=== PATIENT | male | born 2000 | race African-American/Black ===

== ENCOUNTER 2022-11-06 01:07 | Emergency (ER) | payer OTHER, SELFPAY ==
[2022-11-06 01:09] VITALS: BP 173/99; PULSE 89; RESP 20; TEMP 36.9; O2SAT 99
--- NOTE | 2022-11-06 02:01 | ED.GENADULT ---
HPI - General Adult General Chief complaint: Abdominal Pain Stated complaint: ABD PAIN Time Seen by Provider: 11/06/22 01:08 History of Present Illness HPI narrative: this is a 22-year-old male presenting ED with a chief complaint of abdominal pain. Pain started when he woke up this morning, is a stabbing pain all over her stomach that is 10/10 in intensity and comes and goes. He has experienced this many times in the past. There are no exacerbating or alleviating factors. He has gone to multiple hospitals where he has been told that this is cyclic vomiting but he does not believe them. Patient has had multiple episodes of nausea and vomiting, no diarrhea fevers chest pain or difficulty breathing. Patient smokes 3-4 blunts per day. Related Data Allergies Allergy/AdvReac Type Severity Reaction Status Date / Time No Known Allergies Allergy Verified 11/06/22 01:22 [facility] Social History Social History (Updated 11/06/22 @ 02:03 by Spike Clarke MD) Social History: Daily marijuana Exam Narrative: APPEARANCE: patient is rolling back and forth moaning, he will not sit still Head: atraumatic. EYES: EOMI, NOSE: Atraumatic NECK: Trachea midline RESPIRATORY: No increased rate of breathing CARDIOVASCULAR: RRR, ABDOMINAL: abdomen is soft, nontender no guarding or rebound MUSCULOSKELETAl: No obvious deformities NEURO: Alert. Moving 4/4 extremities SKIN:: Warm, dry. Normal color PSYCHIATRIC: Normal affect Course Vital Signs Vital signs: Vital Signs Temperature 98.5 F 11/06/22 01:09 Pulse Rate 89 11/06/22 01:09 Respiratory Rate 20 11/06/22 01:09 Blood Pressure 173/99 H 11/06/22 01:09 Pulse Oximetry 99 11/06/22 01:09 Oxygen Delivery Room Air 11/06/22 01:09 Temperature 98.5 F 11/06/22 01:09 Pulse Rate 80 11/06/22 03:00 Respiratory Rate 19 11/06/22 03:00 Blood Pressure 144/91 H 11/06/22 03:00 Pulse Oximetry 99 11/06/22 03:00 Oxygen Delivery Room Air 11/06/22 01:09 Medical Decision Making MDM Narrative Medical decision making narrative: -Presentation: 22-year-old daily marijuana user presenting with diffuse abdominal pain nausea and vomiting. -DDX includes but is not limited to: Cyclic vomiting, gastritis -Co-morbidities complicating care: daily marijuana use -Social determinants of health: lives with his girlfriend and son -External Chart Review: none -Hx from independent Sources: none -Discussion of Management/Consultants: none -Independent interpretation of studies: lab work is within normal limits. Dx tests considered but not ordered: CT abdomen pelvis -abdomen is soft nontender with no guarding or rebound. Patient's history and physical are consistent with cyclic vomiting. -Procedures: -Interventions: 2 L normal saline, 5 mg Haldol, 20 mg Pepcid, 4 mg Zofran, 10 mg Compazine, 25 mg Benadryl -Shared decision making / Disposition: patient's symptoms improved after Haldol administration. He was informed that he needs to stop smoking. Patient is skeptical. Patient will be discharged. -RX Vital Signs Vital Signs: Vital Signs Temperature 98.5 F 11/06/22 01:09 Pulse Rate 89 11/06/22 01:09 Respiratory Rate 20 11/06/22 01:09 Blood Pressure 173/99 H 11/06/22 01:09 Pulse Oximetry 99 11/06/22 01:09 Oxygen Delivery Room Air 11/06/22 01:09 Temperature 98.5 F 11/06/22 01:09 Pulse Rate 80 11/06/22 03:00 Respiratory Rate 19 11/06/22 03:00 Blood Pressure 144/91 H 11/06/22 03:00 Pulse Oximetry 99 11/06/22 03:00 Oxygen Delivery Room Air 11/06/22 01:09 Lab Data 11/06/22 02:41 11/06/22 02:41 Labs: Lab Results 11/06/22 11/06/22 Range/Units 02:41 02:41 WBC 11.8 H (4.5-10.0) K/mm3 RBC 4.32 L (4.6-6.20) M/mm3 Hgb 10.4 L (14.0-18.0) g/dL Hct 33.5 L (42.0-52.0) % MCV 77.5 L (80-100) fl MCH 24.1 L (26-34) pg MCHC 31.0 L (32-36) g/dl RDW 1
[2022-11-06 02:45] LABS: Basophils Percent Auto 0.2 % (0.2-1.2); Eosinophils Absolute Auto 0.1 K/mm3 (0-0.3); Eosinophils Percent Auto 0.5 % (0-4.4); Hematocrit 33.5 % (42.0-52.0); Hemoglobin 10.4 g/dL (14.0-18.0); Immature Granulocyte Absolute 0.04 K/mm3 (0.00-0.031); Immature Granulocyte Percent A 0.3 % (0-0.5); Lymphocytes Absolute Auto 1.56 K/mm3 (0.9-3.2); Lymphocytes Percent Auto 13.3 % (18.3-44.2); Mean Corpuscular Hemoglobin 24.1 pg (26-34); Mean Corpuscular Volume 77.5 fl (80-100); Mean Platelet Volume 9.7 fl (7.4-10.4); Monocytes Absolute Auto 0.6 K/mm3 (0.1-0.6); Neutrophils Absolute Auto 9.5 K/mm3 (1.3-6.7); Neutrophils Percent Auto 80.7 % (45.5-73.1); Platelet Count Result 334 k/mm3 (150-375); Red Blood Count 4.32 M/mm3 (4.6-6.20); Red Cell Distribution Width 13.1 % (11.5-14.5); White Blood Count 11.8 K/mm3 (4.5-10.0)
[2022-11-06 03:00] VITALS: BP 144/91; PULSE 80; RESP 19; O2SAT 99
[2022-11-06 03:00] LABS: Alanine Aminotransferase 34 U/L (6-50); Albumin Level 4.5 g/dL (3.5-5.1); Alkaline Phosphatase 81 U/L (38-126); Anion Gap 11 mmol/L (8-16); Aspartate Amino Transferase 29 U/L (17-59); Bilirubin,Total 0.9 mg/dL (0.2-1.3); Blood Urea Nitrogen 12 mg/dL (9-20); Carbon Dioxide 22 mmol/L (22-30); Chloride 103 mmol/L (98-107); Estimated CRCL calculation 119 ml/min; Estimated Glomerular Filt Rate > 60; Glucose 101 mg/dL (65-110); Lipase 62 U/L (23-300); Potassium 3.3 mmol/L (3.4-5.0); Sodium 136 mmol/L (137-145)
[2022-11-06] MEDS: SODIUM CHLORIDE 0.9% IV 2,000 ML 999 ML IV CONT (03:46)
[2022-11-06] MEDS: FAMOTIDINE 20 MG/2 ML VIAL IV PUSH (03:49)
[2022-11-06] MEDS: HALOPERIDOL LACTATE 5 MG/ML VIAL IV PUSH (03:49)
[2022-11-06] MEDS: diphenhydrAMINE HCl INJ 50 MG/ML VIAL 25 MG IV PUSH (03:50)
[2022-11-06] MEDS: ONDANSETRON INJ 4 MG/2 ML VIAL IV PUSH (03:50)
[2022-11-06] MEDS: PROCHLORPERAZINE EDISYLATE 10 MG/2 ML VIAL IV PUSH (03:51)
== END 2022-11-06 04:40 | disposition home or self-care (01) ==
PROVIDERS: Emergency Provider Emergency Medicine; PCP Internal Medicine
DX: R11.2 Nausea with vomiting, unspecified (principal); F12.90 Cannabis use, unspecified, uncomplicated
CPT/HCPCS: 36415; 80053; 83690; 85025; 96361; 96374; 96375; 99284; J0780; J1200; J1630; J2405; J7030

== ENCOUNTER 2022-11-28 18:33 | Emergency (ER) | payer OTHER, SELFPAY ==
[2022-11-28] VITALS (19 sets, daily range): BP systolic 109–151; BP diastolic 61–87; PULSE 114; RESP 20; TEMP 36.3; O2SAT 92–100
[2022-11-28 19:04] LABS: Basophils Percent Auto 0.1 % (0.2-1.2); Eosinophils Percent Auto 0.2 % (0-4.4); Hematocrit 39.3 % (42.0-52.0); Hemoglobin 12.4 g/dL (14.0-18.0); Immature Granulocyte Absolute 0.04 K/mm3 (0.00-0.031); Immature Granulocyte Percent A 0.4 % (0-0.5); Lymphocytes Absolute Auto 1.26 K/mm3 (0.9-3.2); Lymphocytes Percent Auto 12.5 % (18.3-44.2); Mean Corpuscular HGB Conc 31.6 g/dl (32-36); Mean Corpuscular Hemoglobin 24.3 pg (26-34); Mean Corpuscular Volume 77.1 fl (80-100); Mean Platelet Volume 9.2 fl (7.4-10.4); Monocytes Absolute Auto 0.3 K/mm3 (0.1-0.6); Monocytes Percent Auto 2.9 % (2.6-8.5); Neutrophils Absolute Auto 8.5 K/mm3 (1.3-6.7); Neutrophils Percent Auto 83.9 % (45.5-73.1); Platelet Count Result 302 k/mm3 (150-375); White Blood Count 10.1 K/mm3 (4.5-10.0)
[2022-11-28 19:21] LABS: Alanine Aminotransferase 40 U/L (6-50); Albumin Level 5.1 g/dL (3.5-5.1); Alkaline Phosphatase 96 U/L (38-126); Anion Gap 13 mmol/L (8-16); Aspartate Amino Transferase 30 U/L (17-59); Blood Urea Nitrogen 7 mg/dL (9-20); Calcium 9.7 mg/dL (8.4-10.2); Carbon Dioxide 20 mmol/L (22-30); Chloride 104 mmol/L (98-107); Estimated CRCL calculation 119 ml/min; Estimated Glomerular Filt Rate > 60; Glucose 133 mg/dL (65-110); Lipase 52 U/L (23-300); Potassium 3.6 mmol/L (3.4-5.0); Sodium 137 mmol/L (137-145)
[2022-11-28] MEDS: HALOPERIDOL LACTATE 5 MG/ML VIAL 2.5 MG IV PUSH (22:51)
[2022-11-28 23:47] LABS: Appearance Urine Clear (Clear); Bacteria Urine None Seen /hpf; Bilirubin Urine Negative (Negative); Blood Urine Negative (Negative); Color Urine Yellow (Yellow); Glucose Urine UA Negative (Negative); Ketones Urine 3+ mg/dL (Negative); Leukocyte Esterase Ur Trace LEU/UL (Negative); Nitrate Urine Negative (Negative); Non Pathogenic Casts 0-2; Protein Urine 1+ mg/dL (Negative); RBC Urine 0-2 /hpf (0-2); Specific Grav Ur 1.022 (1.001-1.035); Squamous Epithelial Cell Urine None seen /hpf (Few); WBC Urine 0-5 /hpf; pH Urine >=9.0 (5.0-9.0)
--- NOTE | 2022-11-28 23:48 | ED.ABDPAIN ---
HPI - Abdominal Pain General Chief Complaint: Abdominal Pain Stated Complaint: N/V abd pain Time Seen by Provider: 11/28/22 21:21 History of Present Illness HPI narrative: This is a 22-year-old male with past history of GERD, who presents the emergency department complaining of diffuse abdominal pain and nausea and vomiting. He states this began at approximately noon today. He smoked marijuana earlier this morning. Related Data Allergies Allergy/AdvReac Type Severity Reaction Status Date / Time No Known Allergies Allergy Verified 11/28/22 18:46 Review of Systems Review of Systems: CONSTITUTIONAL: Denies fever, chills, or sweats. CARDIOVASCULAR: Denies chest pain, palpitations, or edema. RESPIRATORY: Denies cough or dyspnea. GASTROINTESTINAL: Diffuse cramping abdominal pain, nausea and vomiting denies diarrhea. GENITOURINARY: Denies dysuria or hematuria. SKIN: Denies rash or itching. MUSCULOSKELETAL: Denies back pain, joint pain, or myalgia. NEUROLOGIC: Denies headache, numbness, dizziness, or weakness. PSYCHIATRIC: Denies anxiety or depression. [facility] Past Medical History Medical History (Updated 11/29/22 @ 04:43 by Angelito Fong MD) Gastroesophageal reflux disease Social History Social History (Updated 11/29/22 @ 04:43 by Angelito Fong MD) Social History: Daily marijuana Smoking status: Current some day smoker Alcohol intake: current Substance use: current Substance use type: marijuana Exam Narrative: GENERAL: Well-developed, well-nourished, appears uncomfortable HEAD: Normocephalic, atraumatic. EYES: PERRLA and EOMI. ENT: Nares clear, no rhinorrhea or epistaxis. Mucous membranes moist. Oropharynx without tonsillar hypertrophy exudate or other lesions. CHEST: Clear to auscultation. No respiratory distress. No wheezes rales or rhonchi HEART: Regular rate and rhythm. No murmur heard. Normal peripheral pulses. ABDOMEN: Soft, nontender, nondistended, normal active bowel sounds. EXTREMITIES: Normal range of motion. No edema. SKIN: Warm, dry, no rash. NEURO: No focal deficits. Alert and oriented x3. PSYCH: Normal mood and affect. Course Course Emergency Course: 23:15 - On reevaluation, the patient states his pain and nausea is improved. He requests to be discharged home. Chemistries unremarkable. CBC demonstrates mildly elevated white blood cell count at 10 and mild microcytic anemia with hemoglobin of 12.4 (baseline 10). UA appears consistent with urinary tract infection but is not concerning for hematuria. The patient politely refuses medications and denies dysuria. Discussed return and emergency precautions including signs/symptoms of intractable vomiting and ACS. The patient voiced understanding and is comfortable with the plan. All questions answered to his satisfaction. Vital Signs Vital signs: Vital Signs Temperature 97.4 F L 11/28/22 18:43 Pulse Rate 114 H 11/28/22 18:43 Respiratory Rate 20 11/28/22 18:43 Blood Pressure 129/86 11/28/22 18:43 Pulse Oximetry 98 11/28/22 18:43 Oxygen Delivery Room Air 11/28/22 18:43 Temperature 97.4 F L 11/28/22 18:43 Pulse Rate 114 H 11/28/22 18:43 Respiratory Rate 20 11/28/22 18:43 Blood Pressure 109/61 11/28/22 23:46 Pulse Oximetry 100 11/28/22 23:32 Oxygen Delivery Room Air 11/28/22 18:43 MDM - Abdominal Pain MDM Narrative Medical decision making narrative: Plan: Labs, antiemetics, pain control, reassess Differential Diagnosis Differential diagnosis: Likely abdominal pain, constipation, gastroenteritis and other (Cannabis hyperemesis, nephrolithiasis, metabolic abnormality, other) Lab Data 11/28/22 18:52 11/28/22 18:52 Labs: Lab Results 11/28/22 11/28/22 Range/Units 18:52 22:53 WBC 10.1 H (4.5-10.0) K/mm3 RBC 5.10 (4.6-6.20) M/mm3 Hgb 12.4 L (14.0-18.0) g/dL Hct 39.3 L (42.0-52.0) % MCV 77.1 L (80-100) fl MCH 24.3
[2022-11-28 23:53] LABS: Add Urine Microscopic? YES
== END 2022-11-29 | disposition home or self-care (01) ==
PROVIDERS: Emergency Medicine; Emergency Provider Preventive Medicine Aerospace Medicine; PCP Internal Medicine
DX: R11.2 Nausea with vomiting, unspecified (principal); F12.10 Cannabis abuse, uncomplicated; K21.9 Gastro-esophageal reflux disease without esophagitis
CPT/HCPCS: 36415; 80053; 81001; 83690; 85025; 96374; 99284; J1630

== ENCOUNTER 2022-12-01 18:12 | Emergency (ER) | payer OTHER, SELFPAY ==
[2022-12-01 18:29] VITALS: BP 139/73; PULSE 83; RESP 18; O2SAT 100
[2022-12-01 19:46] LABS: Basophils Percent Auto 0.3 % (0.2-1.2); Hematocrit 38.4 % (42.0-52.0); Immature Granulocyte Absolute 0.02 K/mm3 (0.00-0.031); Immature Granulocyte Percent A 0.2 % (0-0.5); Lymphocytes Absolute Auto 1.23 K/mm3 (0.9-3.2); Lymphocytes Percent Auto 13.5 % (18.3-44.2); Mean Corpuscular HGB Conc 31.3 g/dl (32-36); Mean Corpuscular Volume 76.8 fl (80-100); Mean Platelet Volume 8.9 fl (7.4-10.4); Monocytes Absolute Auto 0.7 K/mm3 (0.1-0.6); Monocytes Percent Auto 7.1 % (2.6-8.5); Neutrophils Absolute Auto 7.2 K/mm3 (1.3-6.7); Neutrophils Percent Auto 78.9 % (45.5-73.1); Platelet Count Result 301 k/mm3 (150-375); Red Cell Distribution Width 12.7 % (11.5-14.5); White Blood Count 9.1 K/mm3 (4.5-10.0)
--- NOTE | 2022-12-01 19:53 | ED.ABDPAIN ---
HPI - Abdominal Pain General Chief Complaint: Abdominal Pain Stated Complaint: abd pain/nausea Time Seen by Provider: 12/01/22 19:35 History of Present Illness HPI narrative: 22 year old male with a history of cannabis hyperemesis here due to n/v and epigastric abdominal pain. States that he has been unable to tolerate any p.o. over the past 2 days. Pain is described as a soreness in his epigastric region. History of similar and was treated in the ED numerous times and was told it was due to his marijuana use. Patient does admit to smoking marijuana over the past several days. He was seen at [place] emergency department earlier today and was given unknown medicines. States that he went home and smoked more marijuana and then began to vomit again. Related Data Allergies Allergy/AdvReac Type Severity Reaction Status Date / Time No Known Allergies Allergy Verified 12/01/22 18:32 Review of Systems Review of Systems: Gen.: Denies fevers or chills Eyes: Denies eye pain or visual change ENT: Denies congestion Respiratory: Denies shortness of breath or cough CV: Denies chest pain or palpitations GI: Reports abdominal pain, nausea and vomiting denies burning, urgency, frequency or hematuria Musculoskeletal: Denies back pain or muscle pain Neuro: Denies numbness, tingling, weakness or focal weakness Skin: Denies rash Except as documented, all other systems reviewed and negative [facility] Past Medical History Medical History Gastroesophageal reflux disease Social History Social History (Updated 11/29/22 @ 04:43 by Angelito Fong MD) Social History: Daily marijuana Smoking status: Current some day smoker Alcohol intake: current Substance use: current Substance use type: marijuana Exam Narrative: APPEARANCE: Uncomfortable appearing, actively vomiting, 500 cc of nonbloody vomit in emesis bag Head: Normocephalic and atraumatic. EYES: PERRLA/EOMI, conjunctivae clear NOSE: No nasal drainage EARS: External ear normal in appearance THROAT: Oropharynx is clear. Mucous membranes are moist. NECK: Supple. No adenopathy, no masses. RESPIRATORY: Airway patent, respirations nonlabored. Clear to auscultation bilaterally, no rales, rhonchi, wheezing. CARDIOVASCULAR: Regular rate and rhythm without murmurs, rubs, or gallops. ABDOMINAL: Normoactive bowel sounds. Soft, nontender, nondistended. No rebound tenderness or guarding. MUSCULOSKELETAL: Extremities are warm and well-perfused. Moves all extremities well. No edema. NEURO: Normal speech. No focal neurologic deficits. SKIN: Skin is warm and dry. No rashes. PSYCHIATRIC: Normal affect/mood. Course Vital Signs Vital signs: Vital Signs Pulse Rate 83 12/01/22 18:29 Respiratory Rate 18 12/01/22 18:29 Blood Pressure 139/73 12/01/22 18:29 Pulse Oximetry 100 12/01/22 18:29 Oxygen Delivery Room Air 12/01/22 18:29 Temperature 98 F 12/01/22 21:10 Pulse Rate 80 12/01/22 21:10 Respiratory Rate 18 12/01/22 21:10 Blood Pressure 111/69 12/01/22 21:10 Pulse Oximetry 99 12/01/22 21:10 Oxygen Delivery Room Air 12/01/22 18:29 MDM - Abdominal Pain MDM Narrative Medical decision making narrative: 22-year-old male here for evaluation of nausea and vomiting of the past several days, positive cannabis use. He is uncomfortable appearing but nontoxic, has no tenderness to palpation of the abdomen. Vital signs are normal. Basic labs unremarkable, UA with ketones likely due to dehydration. Patient was given Haldol, Benadryl and fluids with improvement of his symptoms. He is able to tolerate p.o. No indication for intra-abdominal imaging at this time. Understands he needs to stop smoking marijuana. He was given GI follow-up. Return precautions were given and he voiced understanding. Lab Data 12/01/22 19:39 12/01/22 19:39 Labs: Lab Results
[2022-12-01 20:00] LABS: Alanine Aminotransferase 26 U/L (6-50); Albumin Level 4.8 g/dL (3.5-5.1); Alkaline Phosphatase 79 U/L (38-126); Anion Gap 9 mmol/L (8-16); Aspartate Amino Transferase 43 U/L (17-59); Bilirubin,Total 0.9 mg/dL (0.2-1.3); Blood Urea Nitrogen 10 mg/dL (9-20); Calcium 9.5 mg/dL (8.4-10.2); Carbon Dioxide 28 mmol/L (22-30); Chloride 100 mmol/L (98-107); Estimated CRCL calculation 119 ml/min; Estimated Glomerular Filt Rate > 60; Glucose 98 mg/dL (65-110); Lipase 104 U/L (23-300); Potassium 3.6 mmol/L (3.4-5.0); Sodium 137 mmol/L (137-145)
[2022-12-01] MEDS: LACTATED RINGERS 1,000 ML 999 ML IV CONT (20:03)
[2022-12-01] MEDS: diphenhydrAMINE HCl INJ 50 MG/ML VIAL 25 MG IV PUSH (20:04)
[2022-12-01] MEDS: HALOPERIDOL LACTATE 5 MG/ML VIAL IV PUSH (20:04)
[2022-12-01 21:10] VITALS: BP 111/69; PULSE 80; RESP 18; TEMP 36.6; O2SAT 99
[2022-12-01 21:15] LABS: Appearance Urine Clear (Clear); Bacteria Urine None Seen /hpf; Bilirubin Urine Negative (Negative); Blood Urine Negative (Negative); Color Urine Dark Yellow (Yellow); Glucose Urine UA Negative (Negative); Ketones Urine 3+ mg/dL (Negative); Leukocyte Esterase Ur Negative LEU/UL (Negative); Nitrate Urine Negative (Negative); Non Pathogenic Casts 0-2; Protein Urine Trace mg/dL (Negative); RBC Urine 0-2 /hpf (0-2); Squamous Epithelial Cell Urine None seen /hpf (Few); WBC Urine 0-5 /hpf
[2022-12-01 21:23] LABS: Specific Grav Ur 1.036 (1.001-1.035)
[2022-12-01 21:24] LABS: Add Urine Microscopic? YES
== END 2022-12-01 21:19 | disposition home or self-care (01) ==
PROVIDERS: Emergency Medicine; Emergency Provider Physician Assistant; PCP Internal Medicine
DX: R11.2 Nausea with vomiting, unspecified (principal); F12.90 Cannabis use, unspecified, uncomplicated; K21.9 Gastro-esophageal reflux disease without esophagitis
CPT/HCPCS: 36415; 80053; 81001; 83690; 85025; 96361; 96374; 96375; 99284; J1200; J1630; J7120

== ENCOUNTER 2022-12-19 23:18 | Emergency (ER) | payer OTHER, SELFPAY ==
[2022-12-19 23:21] VITALS: PULSE 95; RESP 18; TEMP 36.6; O2SAT 99
[2022-12-19 23:24] VITALS: BP 110/59
--- NOTE | 2022-12-20 00:50 | ED.DENTAL ---
HPI - Dental/Oral General Chief complaint: Dental/Oral Stated complaint: left sided swelling and facial pain since yesteray Time Seen by Provider: 12/20/22 00:35 History of Present Illness HPI Narrative: 22-year-old male reports for evaluation of left lower mandibular pain and swelling that started yesterday. He reports tenderness over the left side of his face. Denies fever, difficulty swallowing, sore throat, difficulty breathing, rash, ear pain. Reports he does not have a dentist. Related Data Allergies Allergy/AdvReac Type Severity Reaction Status Date / Time No Known Allergies Allergy Verified 12/20/22 00:36 Review of Systems Review of Systems: CONSTITUTIONAL: Denies fever, chills EYES: Denies visual changes, redness, or discharge. ENT: Denies rhinorrhea, congestion, sore throat, or otalgia. CARDIOVASCULAR: Denies chest pain, palpitations, or edema. RESPIRATORY: Denies cough or dyspnea. GASTROINTESTINAL: Denies abdominal pain, nausea, vomiting, or diarrhea. GENITOURINARY: Denies dysuria or hematuria. SKIN: Denies rash or itching. MUSCULOSKELETAL: See HPI NEUROLOGIC: Denies headache, numbness, dizziness, or weakness. PSYCHIATRIC: Denies anxiety or depression. [facility] Past Medical History Medical History Gastroesophageal reflux disease Social History Social History Social History: Daily marijuana Smoking status: Current some day smoker Alcohol intake: current Substance use: current Substance use type: marijuana Exam Narrative: GENERAL: Well-appearing, in no acute distress. HEAD: Normocephalic EYES: PERRLA ENT: Mild facial edema and tenderness overlying the left cheek and mandible. No edema in the submandibular region or neck. Tenderness over the left TMJ. No trismus. Tenderness and induration to the buccal mucosa adjacent to teeth #19 and #20 with wisdom tooth beginning to penetrate gum line. No areas of fluctuation, no evidence of periapical abscess. No caries. No rash to face. Floor of mouth if soft without crepitus. Tolerating secretions. Nares clear. Mucous membranes moist. Oropharynx without tonsillar hypertrophy exudate or other lesions. Left TM is chavez and nonbulging. No mastoid tenderness. NECK: Supple. CHEST: No respiratory distress. Clear to auscultation, no adventitious breath sounds. HEART: Regular rate and rhythm. No murmur heard. Normal peripheral pulses. EXTREMITIES: Normal range of motion. No edema. SKIN: Warm, dry, no rash. NEURO: No focal deficits. Alert and oriented x3. PSYCH: Normal mood and affect. Course Vital Signs Vital signs: Vital Signs Temperature 97.9 F 12/19/22 23:21 Pulse Rate 95 12/19/22 23:21 Respiratory Rate 18 12/19/22 23:21 Pulse Oximetry 99 12/19/22 23:21 Oxygen Delivery Room Air 12/19/22 23:21 Temperature 97.9 F 12/19/22 23:21 Pulse Rate 95 12/19/22 23:21 Respiratory Rate 18 12/19/22 23:21 Blood Pressure 110/59 L 12/19/22 23:24 Pulse Oximetry 99 12/19/22 23:21 Oxygen Delivery Room Air 12/19/22 23:21 MDM - Dental/Oral MDM Narrative Medical decision making narrative: 22-year-old male reports for evaluation of left facial and mandibular edema and pain x2 days. He is tolerating secretions. No trismus. Floor of mouth is soft and nontender. No submandibular swelling. Vital stable, he is afebrile. Patient received first dose of Augmentin, Tylenol and ibuprofen in the ED. Augmentin sent to pharmacy to cover for dental infection. Pain likely secondary to infection vs. inflammation secondary to his wisdom teeth coming in. Dental referrals provided and advised to call in the morning to schedule appointment. Strict ED return precautions were discussed. Patient agrees to the plan verbalizes understanding. Discharged in stable condition Discharge Plan Discharge Clinical Impression: [place]
[2022-12-20] MEDS: ACETAMINOPHEN 500 MG TABLET 1000 MG PO (01:11)
[2022-12-20] MEDS: IBUPROFEN 600 MG TABLET PO (01:12)
[2022-12-20] MEDS: AMOXICILLIN/CLAVULANATE K 875-125 MG TAB 1 TABLET PO (01:13)
== END 2022-12-20 01:21 | disposition home or self-care (01) ==
PROVIDERS: Emergency Provider Physician Assistant; PCP Internal Medicine
DX: K08.89 Other specified disorders of teeth and supporting structures (principal); K21.9 Gastro-esophageal reflux disease without esophagitis; F17.200 Nicotine dependence, unspecified, uncomplicated
CPT/HCPCS: 99283; A9270

== ENCOUNTER 2023-03-15 06:39 | Emergency (ER) | payer OTHER, SELFPAY ==
[2023-03-15 06:39] VITALS: BP 121/79; PULSE 88; RESP 18; TEMP 36.2; O2SAT 100
[2023-03-15 06:54] LABS: Basophils Percent Auto 0.3 % (0.2-1.2); Eosinophils Absolute Auto 0.1 K/mm3 (0-0.3); Eosinophils Percent Auto 2.2 % (0-4.4); Hematocrit 37.4 % (42.0-52.0); Hemoglobin 11.7 g/dL (14.0-18.0); Immature Granulocyte Absolute 0.01 K/mm3 (0.00-0.031); Immature Granulocyte Percent A 0.2 % (0-0.5); Lymphocytes Absolute Auto 1.52 K/mm3 (0.9-3.2); Lymphocytes Percent Auto 24.4 % (18.3-44.2); Mean Corpuscular HGB Conc 31.3 g/dl (32-36); Mean Corpuscular Hemoglobin 24.5 pg (26-34); Mean Corpuscular Volume 78.2 fl (80-100); Mean Platelet Volume 9.2 fl (7.4-10.4); Monocytes Absolute Auto 0.5 K/mm3 (0.1-0.6); Monocytes Percent Auto 7.7 % (2.6-8.5); Neutrophils Absolute Auto 4.1 K/mm3 (1.3-6.7); Neutrophils Percent Auto 65.2 % (45.5-73.1); Platelet Count Result 279 k/mm3 (150-375); Red Blood Count 4.78 M/mm3 (4.6-6.20); Red Cell Distribution Width 12.5 % (11.5-14.5); White Blood Count 6.2 K/mm3 (4.5-10.0)
[2023-03-15 07:04] VITALS: BP 100/41; PULSE 80; RESP 18; O2SAT 96
--- NOTE | 2023-03-15 07:05 | ED.ABDPAIN ---
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 Who returns with the same. The patient complains of diffuse sharp abdominal pain for the past day. This is associated with nausea and nonbloody vomiting. He denies diarrhea or bleeding from elsewhere. He states he last used cannabis yesterday and the day before. Related Data Allergies Allergy/AdvReac Type Severity Reaction Status Date / Time No Known Allergies Allergy Verified 03/15/23 06:45 Review of Systems Review of Systems: CONSTITUTIONAL: Denies fever, chills, or sweats. CARDIOVASCULAR: Denies chest pain, palpitations, or edema. RESPIRATORY: Denies cough or dyspnea. GASTROINTESTINAL: Nausea, vomiting and diffuse abdominal pain denies diarrhea. GENITOURINARY: Denies dysuria or hematuria. MUSCULOSKELETAL: Denies back pain, joint pain, or myalgia. NEUROLOGIC: Denies headache, numbness, dizziness, or weakness. PSYCHIATRIC: Denies anxiety or depression. [facility] Past Medical History Medical History Gastroesophageal reflux disease Social History Social History Social History: Daily marijuana Smoking status: Current some day smoker Alcohol intake: current Substance use: current Substance use type: marijuana Exam Narrative: GENERAL: Well-developed, well-nourished, appears uncomfortable HEAD: Normocephalic, atraumatic. EYES: PERRLA and EOMI. ENT: Nares clear, no rhinorrhea or epistaxis. Mucous membranes moist. Oropharynx without tonsillar hypertrophy exudate or other lesions. CHEST: Clear to auscultation. No respiratory distress. No wheezes rales or rhonchi HEART: Regular rate and rhythm. No murmur heard. Normal peripheral pulses. ABDOMEN: Soft, minimal diffuse tenderness to palpation without rebound or guarding, nondistended, normal active bowel sounds. EXTREMITIES: Normal range of motion. No edema. SKIN: Warm, dry, no rash. NEURO: No focal deficits. Alert and oriented x3. PSYCH: Normal mood and affect. Course Course Emergency Course: 07:47 -On reevaluation, the patient states he feels much improved after 5 mg of Haldol IM, IV fluids and 25 mg Benadryl. I advised the patient that his symptoms are likely due to cannabis use and advised against further use. The patient states he has a follow-up appointment with GI doctor. CBC demonstrates mild anemia with hemoglobin of 11.7 not significantly changed since previous. Chemistries demonstrate mild hyponatremia with sodium of 135. Will discharge with primary care and GI follow-up. Discussed return and emergency precautions including signs/symptoms of acute abdomen and intractable vomiting. The patient voiced understanding and is comfortable with the plan. All questions answered to his satisfaction. Vital Signs Vital signs: Vital Signs Temperature 97.2 F L 03/15/23 06:39 Pulse Rate 88 03/15/23 06:39 Respiratory Rate 18 03/15/23 06:39 Blood Pressure 121/79 03/15/23 06:39 Pulse Oximetry 100 03/15/23 06:39 Oxygen Delivery Room Air 03/15/23 06:39 Temperature 97.2 F L 03/15/23 06:39 Pulse Rate 80 03/15/23 07:04 Respiratory Rate 18 03/15/23 07:04 Blood Pressure 100/41 L 03/15/23 07:04 Pulse Oximetry 96 03/15/23 07:04 Oxygen Delivery Room Air 03/15/23 06:39 MDM - Abdominal Pain MDM Narrative Medical decision making narrative: Plan: Labs, IV fluids, antiemetics, reassess Differential Diagnosis Differential diagnosis: Likely gastroenteritis, pancreatitis and other (Cannabis hyperemesis syndrome, metabolic abnormality, other) Lab Data 03/15/23 06:47 03/15/23 06:47 Labs: Lab
[2023-03-15 07:07] LABS: Alanine Aminotransferase 20 U/L (6-50); Albumin Level 4.7 g/dL (3.5-5.1); Alkaline Phosphatase 83 U/L (38-126); Anion Gap 7 mmol/L (8-16); Aspartate Amino Transferase 28 U/L (17-59); Bilirubin,Total 0.6 mg/dL (0.2-1.3); Blood Urea Nitrogen 10 mg/dL (9-20); Calcium 9.6 mg/dL (8.4-10.2); Carbon Dioxide 27 mmol/L (22-30); Chloride 101 mmol/L (98-107); Estimated CRCL calculation 119 ml/min; Estimated Glomerular Filt Rate > 60; Glucose 97 mg/dL (65-110); Lipase 102 U/L (23-300); Potassium 3.4 mmol/L (3.4-5.0); Sodium 135 mmol/L (137-145)
[2023-03-15] MEDS: SODIUM CHLORIDE 0.9% IV 1,000 ML 999 ML IV CONT (07:16)
[2023-03-15] MEDS: diphenhydrAMINE HCl INJ 50 MG/ML VIAL 25 MG IV PUSH (07:16)
[2023-03-15] MEDS: HALOPERIDOL LACTATE 5 MG/ML VIAL IM (07:16)
[2023-03-15 07:59] VITALS: BP 117/76; PULSE 92; RESP 18; O2SAT 100
--- NOTE | 2023-03-15 08:00 | PC.NURSE ---
Pt said not able to urinate.
== END 2023-03-15 08:00 | disposition home or self-care (01) ==
PROVIDERS: Emergency Medicine; Emergency Provider Preventive Medicine Aerospace Medicine; PCP Internal Medicine
DX: R11.2 Nausea with vomiting, unspecified (principal); F12.10 Cannabis abuse, uncomplicated; K21.9 Gastro-esophageal reflux disease without esophagitis
CPT/HCPCS: 36415; 80053; 83690; 85025; 96361; 96372; 96374; 99284; J1200; J1630; J7030

== ENCOUNTER 2023-04-02 10:47 | Emergency (ER) | payer OTHER, SELFPAY ==
[2023-04-02 10:52] VITALS: BP 114/72; PULSE 80; RESP 16; TEMP 36.4; O2SAT 98
[2023-04-02 11:22] LABS: Basophils Percent Auto 0.2 % (0.2-1.2); Eosinophils Percent Auto 0.2 % (0-4.4); Hematocrit 37.5 % (42.0-52.0); Hemoglobin 11.8 g/dL (14.0-18.0); Immature Granulocyte Absolute 0.01 K/mm3 (0.00-0.031); Immature Granulocyte Percent A 0.1 % (0-0.5); Lymphocytes Absolute Auto 1.09 K/mm3 (0.9-3.2); Mean Corpuscular HGB Conc 31.5 g/dl (32-36); Mean Corpuscular Hemoglobin 24.5 pg (26-34); Mean Platelet Volume 9.4 fl (7.4-10.4); Monocytes Absolute Auto 0.4 K/mm3 (0.1-0.6); Monocytes Percent Auto 4.9 % (2.6-8.5); Neutrophils Absolute Auto 6.8 K/mm3 (1.3-6.7); Neutrophils Percent Auto 81.6 % (45.5-73.1); Platelet Count Result 253 k/mm3 (150-375); Red Blood Count 4.81 M/mm3 (4.6-6.20); Red Cell Distribution Width 13.1 % (11.5-14.5); White Blood Count 8.4 K/mm3 (4.5-10.0)
--- NOTE | 2023-04-02 11:24 | ED.GENADULT ---
[facility] - General Adult General Chief complaint: Abdominal Pain Stated complaint: ABD PAIN XTD Time Seen by Provider: 04/02/23 10:57 Source: patient Mode of arrival: EMS Limitations: no limitations History of Present Illness HPI narrative: This is a 22-year-old male with PMH of GERD, cannabis use disorder who presents to the ED via EMS with chief complaint of acute on chronic abdominal pain. Patient states that it started this morning after he woke up. He states yesterday he was in pain as well and went to [facility] and had negative work-up including a negative ultrasound. Patient states that he has been evaluated by GI in the past and states they cannot figure out why his stomach hurts. Patient states that he has nausea and intermittent vomiting but no vomiting today. Patient states that he smokes marijuana daily. Denies any association of pain with oral intake. Denies any changes in pain characteristics and states that he has been having the symptoms intermittently for the past 3 years. Reports he has pain all over. Denies fevers, chills, diarrhea, chest pain, shortness of breath, cough. Related Data Allergies Allergy/AdvReac Type Severity Reaction Status Date / Time No Known Allergies Allergy Verified 03/15/23 06:45 Review of Systems Review of Systems: All systems as dictated in [facility] Past Medical History Medical History Gastroesophageal reflux disease Social History Social History Social History: Daily marijuana Smoking status: Current some day smoker Alcohol intake: current Substance use: current Substance use type: marijuana Exam Narrative: GENERAL: Well-appearing, well-nourished, and in no acute distress. HEAD: Normocephalic, atraumatic. EYES: PERRLA and EOMI. ENT: Nares clear, no rhinorrhea or epistaxis. Mucous membranes moist. Oropharynx without tonsillar hypertrophy exudate or other lesions. NECK: Supple. No adenopathy or masses. CHEST: No respiratory distress. Clear to auscultation. No wheezes rales or rhonchi HEART: Regular rate and rhythm. No murmur heard. Normal peripheral pulses. ABDOMEN: Soft, nontender, nondistended, normal active bowel sounds. MSK: Normal range of motion. No edema. SKIN: Warm, dry, no rash. NEURO: Alert and oriented x3. No focal deficits. PSYCH: Normal mood and affect. Course Course Emergency Course: Reevaluation 1400: Patient feeling better and ready to go home. Vital Signs Vital signs: Vital Signs Temperature 97.6 F 04/02/23 10:52 Pulse Rate 80 04/02/23 10:52 Respiratory Rate 16 04/02/23 10:52 Blood Pressure 114/72 04/02/23 10:52 Pulse Oximetry 98 04/02/23 10:52 Temperature 97.6 F 04/02/23 10:52 Pulse Rate 87 04/02/23 14:12 Respiratory Rate 18 04/02/23 14:12 Blood Pressure 126/73 04/02/23 14:12 Pulse Oximetry 100 04/02/23 14:12 Medical Decision Making MDM Narrative Medical decision making narrative: This is a 22-year-old male who presents To the ED with chief complaint of epigastric pain acutely today and chronic for the past 3 years intermittently. Vitals are normal. Exam is benign. No focal abdominal tenderness. Lab work is grossly unremarkable. UA shows evidence of dehydration but no infection. He was given IV fluids, Toradol and Benadryl with initial relief of his symptoms. He continued to complain of a lot of anxiety so Ativan was given with good relief. He he then started to develop some GERD symptoms so we gave him famotidine. After all of these medications patient is feeling ready to go home. His exam remains unchanged. Vital signs normal upon discharge. Symptoms consistent with gastritis. Pt will be discharged in stable condition. Return precautions given and supportive measures discussed. Pt is understanding and agreeable with plan for discharge and foll
[2023-04-02 11:25] LABS: Appearance Urine Turbid (Clear); Bacteria Urine None Seen /hpf; Bilirubin Urine Negative (Negative); Blood Urine Negative (Negative); Color Urine Dark Yellow (Yellow); Glucose Urine UA Negative (Negative); Ketones Urine 3+ mg/dL (Negative); Leukocyte Esterase Ur Negative LEU/UL (Negative); Nitrate Urine Negative (Negative); Non Pathogenic Casts 0-2; Protein Urine 1+ mg/dL (Negative); RBC Urine 0-2 /hpf (0-2); Specific Grav Ur 1.028 (1.001-1.035); Squamous Epithelial Cell Urine None seen /hpf (Few); WBC Urine 0-5 /hpf; pH Urine 7.5 (5.0-9.0)
[2023-04-02] MEDS: KETOROLAC 15 MG/ML VIAL (*BKC) IV PUSH (11:30)
[2023-04-02 11:31] LABS: Alanine Aminotransferase 21 U/L (6-50); Albumin Level 4.8 g/dL (3.5-5.1); Alkaline Phosphatase 87 U/L (38-126); Anion Gap 13 mmol/L (8-16); Aspartate Amino Transferase 25 U/L (17-59); Bilirubin,Total 0.8 mg/dL (0.2-1.3); Blood Urea Nitrogen 9 mg/dL (9-20); Calcium 9.5 mg/dL (8.4-10.2); Carbon Dioxide 24 mmol/L (22-30); Chloride 102 mmol/L (98-107); Estimated CRCL calculation 117 ml/min; Estimated Glomerular Filt Rate > 60; Glucose 92 mg/dL (65-110); Lipase 77 U/L (23-300); Potassium 3.6 mmol/L (3.4-5.0); Sodium 139 mmol/L (137-145)
[2023-04-02] MEDS: diphenhydrAMINE HCl INJ 50 MG/ML VIAL 25 MG IV PUSH (11:32)
[2023-04-02 11:41] LABS: Add Urine Microscopic? YES
[2023-04-02] MEDS: SODIUM CHLORIDE 0.9% IV 1,000 ML 999 ML IV CONT (11:44)
[2023-04-02] MEDS: LORazepam INJ (*CRX) 2 MG/ML VIAL 0.5 MG IV PUSH (12:30)
[2023-04-02] MEDS: FAMOTIDINE 20 MG/2 ML VIAL IV PUSH (13:31)
[2023-04-02 14:12] VITALS: BP 126/73; PULSE 87; RESP 18; O2SAT 100
== END 2023-04-02 14:19 | disposition home or self-care (01) ==
PROVIDERS: Emergency Medicine; Emergency Provider Physician Assistant
DX: R10.13 Epigastric pain (principal); G89.29 Other chronic pain; F17.200 Nicotine dependence, unspecified, uncomplicated
CPT/HCPCS: 36415; 80053; 81001; 83690; 85025; 96361; 96374; 96375; 99284; J1200; J1885; J2060; J7030

== ENCOUNTER 2023-04-04 08:43 | Emergency (ER) | payer OTHER, SELFPAY ==
[2023-04-04 08:46] VITALS: BP 157/98; PULSE 87; RESP 18; TEMP 37.3; O2SAT 100
[2023-04-04 09:02] LABS: Basophils Percent Auto 0.1 % (0.2-1.2); Eosinophils Percent Auto 0.4 % (0-4.4); Hematocrit 35.8 % (42.0-52.0); Hemoglobin 11.1 g/dL (14.0-18.0); Immature Granulocyte Absolute 0.01 K/mm3 (0.00-0.031); Immature Granulocyte Percent A 0.1 % (0-0.5); Lymphocytes Absolute Auto 0.97 K/mm3 (0.9-3.2); Lymphocytes Percent Auto 13.3 % (18.3-44.2); Mean Corpuscular Hemoglobin 24.5 pg (26-34); Mean Platelet Volume 9.4 fl (7.4-10.4); Monocytes Absolute Auto 0.4 K/mm3 (0.1-0.6); Monocytes Percent Auto 4.9 % (2.6-8.5); Neutrophils Absolute Auto 5.9 K/mm3 (1.3-6.7); Neutrophils Percent Auto 81.2 % (45.5-73.1); Platelet Count Result 270 k/mm3 (150-375); Red Blood Count 4.53 M/mm3 (4.6-6.20); White Blood Count 7.3 K/mm3 (4.5-10.0)
[2023-04-04 09:11] LABS: Anion Gap 9 mmol/L (8-16); Blood Urea Nitrogen 7 mg/dL (9-20); Carbon Dioxide 29 mmol/L (22-30); Chloride 103 mmol/L (98-107); Estimated CRCL calculation 130 ml/min; Estimated Glomerular Filt Rate > 60; Glucose 116 mg/dL (65-110); Potassium 3.4 mmol/L (3.4-5.0); Sodium 141 mmol/L (137-145)
[2023-04-04 09:12] LABS: Alanine Aminotransferase 19 U/L (6-50); Albumin Level 4.5 g/dL (3.5-5.1); Alkaline Phosphatase 80 U/L (38-126); Aspartate Amino Transferase 22 U/L (17-59); Bilirubin,Total 0.8 mg/dL (0.2-1.3); Calcium 9.3 mg/dL (8.4-10.2); Lipase 67 U/L (23-300)
[2023-04-04] MEDS: diphenhydrAMINE HCl INJ 50 MG/ML VIAL 25 MG IV PUSH (09:41)
[2023-04-04] MEDS: HALOPERIDOL LACTATE 5 MG/ML VIAL IM (09:41)
[2023-04-04] MEDS: SODIUM CHLORIDE 0.9% IV 1,000 ML 999 ML IV CONT (09:42)
[2023-04-04 09:45] VITALS: BP 166/112; PULSE 106; RESP 22; O2SAT 100
--- NOTE | 2023-04-04 19:29 | ED.ABDPAIN ---
HPI - Abdominal Pain General Chief Complaint: Abdominal Pain Stated Complaint: abd pain Time Seen by Provider: 04/04/23 09:08 History of Present Illness HPI narrative: This is a 22-year-old male, well-known to this emergency department who returns by EMS complaining of diffuse abdominal pain, nausea and nonbloody vomiting. Patient states his pain has been going on for approximately the past hour. He states he continues to use marijuana with last use earlier today. He describes the pain as sharp, rated 10/10 and nonradiating. He has no other complaints at this time Related Data Allergies Allergy/AdvReac Type Severity Reaction Status Date / Time No Known Allergies Allergy Verified 04/04/23 08:48 Review of Systems Review of Systems: CONSTITUTIONAL: Denies fever, chills, or sweats. CARDIOVASCULAR: Denies chest pain, palpitations, or edema. RESPIRATORY: Denies cough or dyspnea. GASTROINTESTINAL: Diffuse abdominal pain, nausea and nonbloody vomiting denies diarrhea. GENITOURINARY: Denies dysuria or hematuria. SKIN: Denies rash or itching. MUSCULOSKELETAL: Denies back pain, joint pain, or myalgia. NEUROLOGIC: Denies headache, numbness, dizziness, or weakness. PSYCHIATRIC: Denies anxiety or depression. [facility] Past Medical History Medical History Gastroesophageal reflux disease Social History Social History Social History: Daily marijuana Smoking status: Current some day smoker Alcohol intake: current Substance use: current Substance use type: marijuana Exam Narrative: GENERAL: Well-developed, well-nourished, in moderate distress due to pain, we repeatedly cries out HEAD: Normocephalic, atraumatic. EYES: PERRLA and EOMI. ENT: Nares clear, no rhinorrhea or epistaxis. Mucous membranes moist. CHEST: Clear to auscultation. No respiratory distress. No wheezes rales or rhonchi HEART: Regular rate and rhythm. No murmur heard. Normal peripheral pulses. ABDOMEN: Soft, diffuse mild tenderness to palpation, without rebound or guarding, nondistended, normal active bowel sounds. EXTREMITIES: Normal range of motion. No edema. SKIN: Warm, dry, no rash. NEURO: Alert and oriented x3. Moving all 4 limbs purposefully. PSYCH: Normal mood and affect. Course Course Emergency Course: 11:00 - CBC demonstrates mild anemia with hemoglobin of 11.1 (baseline of approximately 12) but is otherwise unremarkable. Chemistries unremarkable. The patient noted improvement of his symptoms with IV fluids, IM Haldol and Benadryl. Review of prior documentation shows patient had not had imaging of the abdomen. The patient refused imaging and signed out AGAINST MEDICAL ADVICE Vital Signs Vital signs: Vital Signs Temperature 99.2 F 04/04/23 08:46 Pulse Rate 87 04/04/23 08:46 Respiratory Rate 18 04/04/23 08:46 Blood Pressure 157/98 H 04/04/23 08:46 Pulse Oximetry 100 04/04/23 08:46 Oxygen Delivery Room Air 04/04/23 08:46 Temperature 99.2 F 04/04/23 08:46 Pulse Rate 106 H 04/04/23 09:45 Respiratory Rate 22 H 04/04/23 09:45 Blood Pressure 166/112 H 04/04/23 09:45 Pulse Oximetry 100 04/04/23 09:45 Oxygen Delivery Room Air 04/04/23 08:46 MDM - Abdominal Pain MDM Narrative Medical decision making narrative: Plan: Labs, imaging, IV fluids, antiemetics, reassess Differential Diagnosis Differential diagnosis: Likely abdominal pain, constipation, diverticulitis, gastroenteritis, pancreatitis, small bowel obstruction and other (Cannabis hyperemesis, metabolic abnormality, other) Lab Data 04/04/23 08:57 04/04/23 08:57 Labs: Lab Results 04/04/23 Range/Units 08:57 WBC 7.3 (4.5-10.0) K/mm3 RBC 4.53 L (4.6-6.20) M/mm3 Hgb 11.1 L (14.0-18.0) g/dL Hct 35.8 L (42.0-52.0) % MCV 79.0 L (80-100) fl MCH 24.5 L (26-34) pg MCHC 31.0 L
== END 2023-04-04 11:01 | disposition left against medical advice (07) ==
LOC: ANHED 09:30
PROVIDERS: Emergency Provider Preventive Medicine Aerospace Medicine
DX: R11.2 Nausea with vomiting, unspecified (principal); F12.10 Cannabis abuse, uncomplicated; K21.9 Gastro-esophageal reflux disease without esophagitis
CPT/HCPCS: 36415; 80053; 83690; 85025; 96361; 96372; 96374; 99284; J1200; J1630; J7030

== ENCOUNTER 2023-05-23 10:57 | Emergency (ER) | payer OTHER, SELFPAY ==
[2023-05-23 11:03] VITALS: BP 120/69; PULSE 91; RESP 20; TEMP 36.7; O2SAT 100
--- NOTE | 2023-05-23 11:58 | ED.ABDPAIN ---
HPI - Abdominal Pain General Chief Complaint: Abdominal Pain Stated Complaint: abd pain Time Seen by Provider: 05/23/23 11:54 History of Present Illness HPI narrative: Patient is a 22-year-old male here with lower abdominal pain via EMS. He states that he has had similar abdominal pain every morning when he wakes up over the last 2-3 months. He describes it as cramping in nature and usually throughout his entire lower abdomen. He states that it occurs for about an hour and subsides completely when he eats 1st thing in the morning. He describes it as feeling as though he has bubble gets and it is usually associated with some flatulence. He has daily bowel movements which are formed an nonbloody. Of note he does have a history of a different type of abdominal pain which she got a colonoscopy and endoscopy for in the past and was told it was likely related to an H pylori infection. Due to this change in his abdominal pains he is scheduled for an outpatient colonoscopy on 06/16 with his batch analyst. No fever or chills. No nausea or vomiting. He does note some burning with urination which began this morning. He denies any penile discharge. He denies any concerns for STDs. He would like to be tested however. No cough, congestion. He does note that while he was in the waiting room his abdominal pain completely subsided and he is now asymptomatic. Related Data Allergies Allergy/AdvReac Type Severity Reaction Status Date / Time No Known Allergies Allergy Verified 05/23/23 11:52 Review of Systems Review of Systems: All systems reviewed & are unremarkable except as noted in HPI and below PMFSH Past Medical History Medical History Gastroesophageal reflux disease Social History Social History Social History: Daily marijuana Smoking status: Current some day smoker Alcohol intake: current Substance use: current Substance use type: marijuana Exam Narrative: GENERAL: Well-appearing, well-nourished, and in no acute distress. HEAD: Normocephalic, atraumatic. EYES: PERRLA and EOMI. ENT: Nares clear. Mucous membranes moist. NECK: Supple. CHEST: Clear to auscultation. No respiratory distress. HEART: Regular rate and rhythm. Normal peripheral pulses. ABDOMEN: Soft, nontender, nondistended. No rebound or guarding. : deferred EXTREMITIES: Normal range of motion. No edema. SKIN: Warm, dry, no rash. NEURO: No focal deficits. Alert and oriented x3. PSYCH: Normal mood and affect. Course Course Emergency Course: Chart review performed. Patient here with abdominal pain x3 days. Received zofran and fentanyl en route. Triage vitals normal. Last ED visit here was 04/02/23 for abdominal pain. They noted 3 year history of abdominal pain with prior GI visits without identifiable cause. He had daily marijuana use at that time. Patient seen evaluated, no acute distress. He does have a history of chronic abdominal pain, this current type of abdominal pain is been present for last 2-3 months. He is already following a batch analyst. He is currently asymptomatic. Will do lab work, UA, urine STD testing, IV fluids, Protonix and re-evaluate. Anticipate he will be discharged with outpatient follow-up with his batch analyst and primary care doctor. Lab work reviewed, CBC grossly unremarkable, CMP within normal limits including normal renal function and LFTs. Urine and STD testing pending. UA negative for UTI. Lab is trying to locate his specimen to send the STD testing. Patient would like to leave at this time and not wait for the STD results. Advise he should follow these with his primary care doctor. The results of pertinent diagnostic studies and exam findings were discussed. The patient?s provisional diagnosis and plan of care were discussed with the patient and present family. The patient
--- NOTE | 2023-05-23 12:03 | ECG_ITS ---
Measurements Intervals [place] Rate: 76 P: 130 [place]: 204 QRS: 75 QRSD: 89 T: 36 QT: 374 QTc: 421 Interpretive Statements ELECTRONIC ATRIAL PACEMAKER SEPTAL MYOCARDIAL INFARCTION , POSSIBLY ACUTE [40+ ms Q WAVE IN V1/V2] ACUTE CO NO PREVIOUS ECG AVAILABLE FOR COMPARISON Electronically Signed On 05-23-2023 13:36:31 CDT by Yakov Sams MD
[2023-05-23] MEDS: PANTOPRAZOLE SODIUM IV 40 MG VIAL IV PUSH (12:23)
[2023-05-23] MEDS: SODIUM CHLORIDE 0.9% IV 1,000 ML 999 ML IV CONT (12:23)
[2023-05-23 12:26] LABS: Basophils Percent Auto 0.3 % (0.2-1.2); Hematocrit 36.7 % (42.0-52.0); Hemoglobin 11.4 g/dL (14.0-18.0); Immature Granulocyte Absolute 0.03 K/mm3 (0.00-0.031); Immature Granulocyte Percent A 0.4 % (0-0.5); Lymphocytes Absolute Auto 0.68 K/mm3 (0.9-3.2); Lymphocytes Percent Auto 9.9 % (18.3-44.2); Mean Corpuscular HGB Conc 31.1 g/dl (32-36); Mean Corpuscular Hemoglobin 24.5 pg (26-34); Mean Corpuscular Volume 78.8 fl (80-100); Mean Platelet Volume 9.3 fl (7.4-10.4); Monocytes Absolute Auto 0.3 K/mm3 (0.1-0.6); Monocytes Percent Auto 4.8 % (2.6-8.5); Neutrophils Absolute Auto 5.8 K/mm3 (1.3-6.7); Neutrophils Percent Auto 84.6 % (45.5-73.1); Platelet Count Result 267 k/mm3 (150-375); Red Blood Count 4.66 M/mm3 (4.6-6.20); Red Cell Distribution Width 12.8 % (11.5-14.5); White Blood Count 6.9 K/mm3 (4.5-10.0)
[2023-05-23 12:33] LABS: Alanine Aminotransferase 19 U/L (6-50); Albumin Level 4.9 g/dL (3.5-5.1); Alkaline Phosphatase 87 U/L (38-126); Anion Gap 9 mmol/L (8-16); Aspartate Amino Transferase 22 U/L (17-59); Bilirubin,Total 0.7 mg/dL (0.2-1.3); Blood Urea Nitrogen 12 mg/dL (9-20); Calcium 9.3 mg/dL (8.4-10.2); Carbon Dioxide 28 mmol/L (22-30); Chloride 101 mmol/L (98-107); Estimated CRCL calculation 129 ml/min; Estimated Glomerular Filt Rate > 60; Glucose 99 mg/dL (65-110); Lipase 71 U/L (23-300); Potassium 3.6 mmol/L (3.4-5.0); Sodium 138 mmol/L (137-145)
--- NOTE | 2023-05-23 13:16 | ECG_ITS ---
Measurements Intervals [place] Rate: 70 P: 72 MS: 171 QRS: 77 QRSD: 89 T: 42 QT: 373 QTc: 403 Interpretive Statements SINUS RHYTHM WITH MARKED SINUS ARRHYTHMIA SEPTAL MYOCARDIAL INFARCTION [40+ ms Q WAVE IN V1/V2], POSSIBLY ACUTE ACUTE ID COMPARED TO ECG 05/23/2023 12:10:18 SINUS RHYTHM NOW PRESENT SINUS ARRHYTHMIA NOW PRESENT Electronically Signed On 05-23-2023 13:37:27 CDT by Yakov Sams MD
--- NOTE | 2023-05-23 13:58 | PC.NURSE ---
ua specimen collected and sent
--- NOTE | 2023-05-23 14:06 | PC.NURSE ---
pt ambulatory to bathroom to collect ua specimen. pt refusing to be connected back to sale because it is making his stomach hurt and is making him hungry. requesting food.
[2023-05-23 14:11] LABS: Appearance Urine Clear (Clear); Bacteria Urine None Seen /hpf; Bilirubin Urine Negative (Negative); Blood Urine Negative (Negative); Color Urine Yellow (Yellow); Glucose Urine UA Negative (Negative); Ketones Urine 3+ mg/dL (Negative); Leukocyte Esterase Ur Trace LEU/UL (Negative); Nitrate Urine Negative (Negative); Non Pathogenic Casts 0-2; Protein Urine Trace mg/dL (Negative); RBC Urine 0-2 /hpf (0-2); Specific Grav Ur 1.023 (1.001-1.035); Squamous Epithelial Cell Urine None seen /hpf (Few); WBC Urine 0-5 /hpf; pH Urine 7.5 (5.0-9.0)
[2023-05-23 14:12] LABS: Add Urine Microscopic? YES
--- NOTE | 2023-05-23 15:22 | PC.NURSE ---
lab contacted regarding missing sti testing. states they should be able to run them. he is looking for the urine.
== END 2023-05-23 15:45 | disposition home or self-care (01) ==
PROVIDERS: Emergency Provider Student in an Organized Health Care Education/Training Program
DX: R10.30 Lower abdominal pain, unspecified (principal); K21.9 Gastro-esophageal reflux disease without esophagitis; F12.90 Cannabis use, unspecified, uncomplicated
CPT/HCPCS: 36415; 80053; 81001; 83690; 85025; 93005; 96361; 96374; 99284; C9113; J7030

== ENCOUNTER 2023-06-11 14:29 | Emergency (ER) | payer OTHER, SELFPAY ==
[2023-06-11 14:55] VITALS: BP 110/59; PULSE 93; RESP 20; TEMP 36.6; O2SAT 100
--- NOTE | 2023-06-11 15:33 | ED.ABDPAIN ---
HPI - Abdominal Pain General Chief Complaint: Abdominal Pain Stated Complaint: abd pain Time Seen by Provider: 06/11/23 15:26 History of Present Illness HPI narrative: 22-year-old male presents to the emergency room for sudden onset of abdominal pain radiates to his back with multiple episodes of nonbloody nonbilious emesis. Patient has had multiple visits to the emergency room for similar symptoms. Been diagnosed with cannabis hyperemesis syndrome. Patient states he continues to smoke marijuana daily. Related Data Allergies Allergy/AdvReac Type Severity Reaction Status Date / Time No Known Allergies Allergy Verified 06/11/23 14:59 Review of Systems Review of Systems: CONSTITUTIONAL: Denies fever, chills, or sweats. EYES: Denies visual changes, redness, or discharge. ENT: Denies rhinorrhea, congestion, sore throat, or otalgia. CARDIOVASCULAR: Denies chest pain, palpitations, or edema. RESPIRATORY: Denies cough or dyspnea. GASTROINTESTINAL: Reports abdominal pain, nausea and vomiting GENITOURINARY: Denies dysuria or hematuria. SKIN: Denies rash or itching. MUSCULOSKELETAL: Denies back pain, joint pain, or myalgia. NEUROLOGIC: Denies headache, numbness, dizziness, or weakness. PSYCHIATRIC: Denies anxiety or depression. [facility] Past Medical History Medical History Gastroesophageal reflux disease Social History Social History Social History: Daily marijuana Smoking status: Current some day smoker Alcohol intake: current Substance use: current Substance use type: marijuana Exam Narrative: GENERAL: Well-appearing, well-nourished, no physical limitations, and in moderate distress due to pain. HEAD: Normocephalic, atraumatic. EYES: Conjunctivae normal, PERRLA and EOMI. CHEST: Clear to auscultation. No respiratory distress. No wheezes rales or rhonchi. HEART: Regular rate and rhythm. No murmur heard. Normal peripheral pulses. ABDOMEN: Soft, diffuse tenderness, nondistended, normal active bowel sounds. BACK: No CVA tenderness EXTREMITIES: Normal range of motion. No edema. No clubbing or cyanosis SKIN: Warm, dry, no rash. No noted wounds NEURO: No focal deficits. Alert and oriented x3. MAEW. CN's II-XI intact bilaterally, normal gait PSYCH: Cooperative. Normal mood and affect. Course Vital Signs Vital signs: Vital Signs Temperature 36.6 C 06/11/23 14:55 Pulse Rate 93 06/11/23 14:55 Respiratory Rate 20 06/11/23 14:55 Blood Pressure 110/59 L 06/11/23 14:55 Pulse Oximetry 100 06/11/23 14:55 Oxygen Delivery Room Air 06/11/23 14:55 Temperature 36.6 C 06/11/23 14:55 Pulse Rate 93 06/11/23 14:55 Respiratory Rate 20 06/11/23 14:55 Blood Pressure 110/59 L 06/11/23 14:55 Pulse Oximetry 100 06/11/23 14:55 Oxygen Delivery Room Air 06/11/23 14:55 MDM - Abdominal Pain Lab Data 06/11/23 16:08 06/11/23 16:08 Labs: Lab Results 06/11/23 Range/Units 16:08 WBC 6.9 (4.5-10.0) K/mm3 RBC 5.07 (4.6-6.20) M/mm3 Hgb 12.3 L (14.0-18.0) g/dL Hct 39.7 L (42.0-52.0) % MCV 78.3 L (80-100) fl MCH 24.3 L (26-34) pg MCHC 31.0 L (32-36) g/dl RDW 12.7 (11.5-14.5) % Plt Count 260 (150-375) k/mm3 MPV 9.2 (7.4-10.4) fl Immature Gran % (Auto) 0.1 (0-0.5) % Neut % (Auto) 82.5 H (45.5-73.1) % Lymph % (Auto) 11.4 L (18.3-44.2) % [place] % (Auto) 5.6 (2.6-8.5) % Eos % (Auto) 0.1 (0-4.4) % Baso % (Auto) 0.3 (0.2-1.2) % Lymph # (Auto) 0.79 L (0.9-3.2) K/mm3 [place] # (Auto) 0.4 (0.1-0.6) K/mm3 Eos # (Auto) 0.0 (0-0.3) K/mm3 Baso # (Auto) 0.0 (0.0-0.1) K/mm3 Abs Immat Gran (auto) 0.01 (0.00-0.031) K/mm3 Absolute Neuts (auto) 5.7 (1.3-6.7) K/mm3 Absolute Nucleated RBC 0.0 (0.0-0.012) K/mm3 Nucleated RBC % 0.0 (0.0-0.2) % Sodium 138 (137-145) mmol/L Potassium 3.5 (3.4-
[2023-06-11] MEDS: SODIUM CHLORIDE 0.9% IV 1,000 ML 999 ML IV CONT (16:10)
[2023-06-11] MEDS: HALOPERIDOL LACTATE 5 MG/ML VIAL IM (16:11)
[2023-06-11] MEDS: diphenhydrAMINE HCl INJ 50 MG/ML VIAL 25 MG IV PUSH (16:11)
[2023-06-11 16:17] LABS: Basophils Percent Auto 0.3 % (0.2-1.2); Eosinophils Percent Auto 0.1 % (0-4.4); Hematocrit 39.7 % (42.0-52.0); Hemoglobin 12.3 g/dL (14.0-18.0); Immature Granulocyte Absolute 0.01 K/mm3 (0.00-0.031); Immature Granulocyte Percent A 0.1 % (0-0.5); Lymphocytes Absolute Auto 0.79 K/mm3 (0.9-3.2); Lymphocytes Percent Auto 11.4 % (18.3-44.2); Mean Corpuscular Hemoglobin 24.3 pg (26-34); Mean Corpuscular Volume 78.3 fl (80-100); Mean Platelet Volume 9.2 fl (7.4-10.4); Monocytes Absolute Auto 0.4 K/mm3 (0.1-0.6); Monocytes Percent Auto 5.6 % (2.6-8.5); Neutrophils Absolute Auto 5.7 K/mm3 (1.3-6.7); Neutrophils Percent Auto 82.5 % (45.5-73.1); Platelet Count Result 260 k/mm3 (150-375); Red Blood Count 5.07 M/mm3 (4.6-6.20); Red Cell Distribution Width 12.7 % (11.5-14.5); White Blood Count 6.9 K/mm3 (4.5-10.0)
[2023-06-11 16:33] LABS: Alanine Aminotransferase 25 U/L (6-50); Albumin Level 5.2 g/dL (3.5-5.1); Alkaline Phosphatase 98 U/L (38-126); Anion Gap 8 mmol/L (8-16); Aspartate Amino Transferase 27 U/L (17-59); Bilirubin,Total 0.7 mg/dL (0.2-1.3); Blood Urea Nitrogen 10 mg/dL (9-20); Calcium 9.7 mg/dL (8.4-10.2); Carbon Dioxide 29 mmol/L (22-30); Chloride 101 mmol/L (98-107); Estimated CRCL calculation 129 ml/min; Estimated Glomerular Filt Rate > 60; Glucose 98 mg/dL (65-110); Potassium 3.5 mmol/L (3.4-5.0); Sodium 138 mmol/L (137-145)
== END 2023-06-11 17:04 | disposition home or self-care (01) ==
PROVIDERS: Emergency Provider Nurse Practitioner Family
DX: R11.11 Vomiting without nausea (principal); F12.10 Cannabis abuse, uncomplicated; K21.9 Gastro-esophageal reflux disease without esophagitis
CPT/HCPCS: 36415; 80053; 85025; 96361; 96372; 96374; 99284; J1200; J1630; J7030

== ENCOUNTER 2023-07-10 20:35 | Emergency (ER) | payer OTHER, SELFPAY ==
[2023-07-10 20:37] VITALS: BP 117/64; PULSE 98; RESP 20; TEMP 36.6; O2SAT 100
[2023-07-10 22:40] LABS: Basophils Percent Auto 0.2 % (0.2-1.2); Hematocrit 35.7 % (42.0-52.0); Hemoglobin 11.3 g/dL (14.0-18.0); Immature Granulocyte Absolute 0.02 K/mm3 (0.00-0.031); Immature Granulocyte Percent A 0.2 % (0-0.5); Lymphocytes Absolute Auto 0.74 K/mm3 (0.9-3.2); Lymphocytes Percent Auto 7.8 % (18.3-44.2); Mean Corpuscular HGB Conc 31.7 g/dl (32-36); Mean Corpuscular Hemoglobin 24.7 pg (26-34); Mean Corpuscular Volume 78.1 fl (80-100); Mean Platelet Volume 9.1 fl (7.4-10.4); Monocytes Absolute Auto 0.2 K/mm3 (0.1-0.6); Monocytes Percent Auto 2.2 % (2.6-8.5); Neutrophils Absolute Auto 8.5 K/mm3 (1.3-6.7); Neutrophils Percent Auto 89.6 % (45.5-73.1); Platelet Count Result 265 k/mm3 (150-375); Red Blood Count 4.57 M/mm3 (4.6-6.20); Red Cell Distribution Width 12.9 % (11.5-14.5); White Blood Count 9.5 K/mm3 (4.5-10.0)
[2023-07-10 22:47] LABS: Appearance Urine Cloudy (Clear); Bacteria Urine None Seen /hpf; Bilirubin Urine Negative (Negative); Blood Urine Negative (Negative); Color Urine Yellow (Yellow); Glucose Urine UA Negative (Negative); Ketones Urine 4+ mg/dL (Negative); Leukocyte Esterase Ur 1+ LEU/UL (Negative); Nitrate Urine Negative (Negative); Protein Urine 1+ mg/dL (Negative); RBC Urine 0-2 /hpf (0-2); Specific Grav Ur 1.032 (1.001-1.035); Squamous Epithelial Cell Urine None seen /hpf (Few)
[2023-07-10] MEDS: SODIUM CHLORIDE 0.9% IV 1,000 ML 999 ML IV CONT (22:47)
[2023-07-10] MEDS: ONDANSETRON INJ 4 MG/2 ML VIAL IV PUSH (22:48)
[2023-07-10] MEDS: KETOROLAC 30 MG/ML VIAL (*BKC) IV PUSH (22:49)
[2023-07-10 22:52] LABS: Add Urine Microscopic? YES
[2023-07-10 22:54] LABS: Alanine Aminotransferase 23 U/L (6-50); Albumin Level 4.8 g/dL (3.5-5.1); Alkaline Phosphatase 89 U/L (38-126); Anion Gap 7 mmol/L (8-16); Aspartate Amino Transferase 29 U/L (17-59); Bilirubin,Total 0.8 mg/dL (0.2-1.3); Blood Urea Nitrogen 12 mg/dL (9-20); Calcium 9.5 mg/dL (8.4-10.2); Carbon Dioxide 25 mmol/L (22-30); Chloride 104 mmol/L (98-107); Estimated CRCL calculation 122 ml/min; Estimated Glomerular Filt Rate > 60; Glucose 91 mg/dL (65-110); Lipase 60 U/L (23-300); Potassium 3.8 mmol/L (3.4-5.0); Sodium 136 mmol/L (137-145)
--- NOTE | 2023-07-10 22:57 | ED.ABDPAIN ---
HPI - Abdominal Pain General Chief Complaint: Abdominal Pain Stated Complaint: abdominal pain, N/V-chronic Time Seen by Provider: 07/10/23 22:23 History of Present Illness HPI narrative: Patient is a 23-year-old male who presents ER with abdominal pain nausea vomiting. Diffuse abdominal cramping radiating to his back. Began just this evening while he was sitting on the couch. No urinary frequency or urgency or dysuria. No diarrhea. Has history of cannabis hyperemesis syndrome. Reports he has seen a GI doctor without a diagnosis. Related Data Allergies Allergy/AdvReac Type Severity Reaction Status Date / Time No Known Allergies Allergy Verified 07/10/23 20:36 Review of Systems Review of Systems: All systems reviewed & are unremarkable except as noted in HPI and below Constitutional: Constitutional: Reports no additional constitutional complaints ENT: Reports system reviewed and no additional complaints, except as documented Cardiovascular: Cardiovascular: Reports no additional cardiovascular complaints Respiratory: Respiratory: Reports no additional respiratory complaints Gastrointestinal: Gastrointestinal: Reports abdominal pain, Denies diarrhea, Reports nausea and Reports vomiting Genitourinary: Genitourinary: Reports no additional male genitourinary complaints PMF Past Medical History Medical History Gastroesophageal reflux disease Social History Social History Social History: Daily marijuana Smoking status: Current some day smoker Alcohol intake: current Substance use: current Substance use type: marijuana Exam Narrative: GENERAL: Uncomfortable-appearing, well-nourished, and in no acute distress. HEAD: Normocephalic, atraumatic. ENT: Mucous membranes moist. NECK: Supple. CHEST: Clear to auscultation. No respiratory distress. HEART: Regular rate and rhythm. Normal peripheral pulses. ABDOMEN: Soft, nontender, nondistended. EXTREMITIES: Normal range of motion. No edema. SKIN: Warm, dry, no rash. NEURO: Alert and oriented x3. PSYCH: Normal mood and affect. Course Course Emergency Course: Patient with no significant improvement after Phenergan. He also received Bentyl/Zofran/ GI cocktail. Discharged home. Informed of lab work which is unremarkable With exception ketones. Patient has tolerated p.o. and has been hydrated. Vital Signs Vital signs: Vital Signs Temperature 97.8 F 07/10/23 20:37 Pulse Rate 98 07/10/23 20:37 Respiratory Rate 20 07/10/23 20:37 Blood Pressure 117/64 07/10/23 20:37 Pulse Oximetry 100 07/10/23 20:37 Oxygen Delivery Room Air 07/10/23 20:37 Temperature 97.8 F 07/10/23 20:37 Pulse Rate 77 07/11/23 02:01 Respiratory Rate 14 07/11/23 02:01 Blood Pressure 110/75 07/11/23 02:01 Pulse Oximetry 100 07/11/23 02:01 Oxygen Delivery Room Air 07/10/23 20:37 MDM - Abdominal Pain Lab Data 07/10/23 22:30 07/10/23 22:30 Labs: Lab Results 07/10/23 Range/Units 22:30 WBC 9.5 (4.5-10.0) K/mm3 RBC 4.57 L (4.6-6.20) M/mm3 Hgb 11.3 L (14.0-18.0) g/dL Hct 35.7 L (42.0-52.0) % MCV 78.1 L (80-100) fl MCH 24.7 L (26-34) pg MCHC 31.7 L (32-36) g/dl RDW 12.9 (11.5-14.5) % Plt Count 265 (150-375) k/mm3 MPV 9.1 (7.4-10.4) fl Immature Gran % (Auto) 0.2 (0-0.5) % Neut % (Auto) 89.6 H (45.5-73.1) % Lymph % (Auto) 7.8 L (18.3-44.2) % [place] % (Auto) 2.2 L (2.6-8.5) % Eos % (Auto) 0.0 (0-4.4) % Baso % (Auto) 0.2 (0.2-1.2) % Lymph # (Auto) 0.74 L (0.9-3.2) K/mm3 [place] # (Auto) 0.2 (0.1-0.6) K/mm3 Eos # (Auto) 0.0 (0-0.3) K/mm3 Baso # (Auto) 0.0 (0.0-0.1) K/mm3 Abs Immat Gran (auto) 0.02 (0.00-0.031) K/mm3 Absolute Neuts (auto) 8.5 H (1.3-6.7) K/mm3 Absolute Nucleated RBC 0.0 (0.0-0.012) K/mm3 Nucleated RBC %
[2023-07-11] VITALS (7 sets, daily range): BP systolic 110–133; BP diastolic 61–84; PULSE 74–78; RESP 14–18; O2SAT 99–100
[2023-07-11] MEDS: BELLADONNA ALK/PHENOB ELIX 10 ML, MAG HYDROX/ALUMINUM HYD/SIMETH 30 ML, LIDOCAINE HCL 2... PO (00:14)
--- NOTE | 2023-07-11 00:16 | PC.NURSE ---
Pt states that the IVF are making him hungry and wants them to be stopped. Attempted to educate pt on IVF. Pt again, wants IVF to be discontinued. IV has approx 200ml left in bag.
--- NOTE | 2023-07-11 00:30 | PC.NURSE ---
Pt continue to c/o pain. Warm blanket provided for abd. Dr Resendiz notified. Orders received.
[2023-07-11] MEDS: DICYCLOMINE HCL INJ 20 MG/2 ML VIAL IM (00:39)
--- NOTE | 2023-07-11 01:02 | PC.NURSE ---
Pt vomiting. New orders received.
[2023-07-11] MEDS: PROMETHAZINE HCL 25 MG/ML AMPUL 12.5 MG IV PUSH (01:18)
== END 2023-07-11 02:31 | disposition home or self-care (01) ==
PROVIDERS: Emergency Provider Emergency Medicine
DX: R11.2 Nausea with vomiting, unspecified (principal); K21.9 Gastro-esophageal reflux disease without esophagitis
CPT/HCPCS: 36415; 80053; 81001; 83690; 85025; 87086; 87088; 96361; 96372; 96374; 96375; 99284; A9270; J0500; J1885; J2405; J2550; J7030

== ENCOUNTER 2023-08-14 13:30 | Emergency (ER) | payer OTHER, SELFPAY ==
[2023-08-14 13:31] VITALS: BP 111/58; PULSE 96; RESP 16; TEMP 36.6; O2SAT 100
[2023-08-14 13:53] LABS: Basophils Percent Auto 0.2 % (0.2-1.2); Eosinophils Percent Auto 0.1 % (0-4.4); Hematocrit 38.5 % (42.0-52.0); Immature Granulocyte Absolute 0.03 K/mm3 (0.00-0.031); Immature Granulocyte Percent A 0.3 % (0-0.5); Lymphocytes Absolute Auto 1.25 K/mm3 (0.9-3.2); Lymphocytes Percent Auto 14.3 % (18.3-44.2); Mean Corpuscular HGB Conc 31.2 g/dl (32-36); Mean Corpuscular Hemoglobin 24.4 pg (26-34); Mean Corpuscular Volume 78.4 fl (80-100); Mean Platelet Volume 8.8 fl (7.4-10.4); Monocytes Absolute Auto 0.3 K/mm3 (0.1-0.6); Monocytes Percent Auto 3.2 % (2.6-8.5); Neutrophils Absolute Auto 7.1 K/mm3 (1.3-6.7); Neutrophils Percent Auto 81.9 % (45.5-73.1); Platelet Count Result 361 k/mm3 (150-375); Red Blood Count 4.91 M/mm3 (4.6-6.20); Red Cell Distribution Width 12.8 % (11.5-14.5); White Blood Count 8.7 K/mm3 (4.5-10.0)
[2023-08-14 14:02] LABS: Alanine Aminotransferase 37 U/L (6-50); Albumin Level 4.7 g/dL (3.5-5.1); Alkaline Phosphatase 112 U/L (38-126); Anion Gap 14 mmol/L (8-16); Aspartate Amino Transferase 30 U/L (17-59); Bilirubin,Total 0.7 mg/dL (0.2-1.3); Blood Urea Nitrogen 12 mg/dL (9-20); Calcium 9.7 mg/dL (8.4-10.2); Carbon Dioxide 24 mmol/L (22-30); Chloride 102 mmol/L (98-107); Estimated CRCL calculation 140 ml/min; Estimated Glomerular Filt Rate > 60; Glucose 111 mg/dL (65-110); Lipase 80 U/L (23-300); Potassium 3.9 mmol/L (3.4-5.0); Sodium 140 mmol/L (137-145)
[2023-08-14 16:17] VITALS: BP 111/66; PULSE 92; RESP 14
[2023-08-14 18:38] LABS: Appearance Urine Clear (Clear); Bacteria Urine None Seen /hpf; Bilirubin Urine Negative (Negative); Blood Urine Negative (Negative); Color Urine Dark Yellow (Yellow); Glucose Urine UA Negative (Negative); Ketones Urine 4+ mg/dL (Negative); Leukocyte Esterase Ur Trace LEU/UL (Negative); Mucus Urine Present /lpf; Need Manual Microscopic Reviewed; Nitrate Urine Negative (Negative); Non Pathogenic Casts 0-2; Protein Urine 2+ mg/dL (Negative); RBC Urine 0-2 /hpf (0-2); Squamous Epithelial Cell Urine None seen /hpf (Few); WBC Urine 0-5 /hpf
[2023-08-14 18:39] LABS: Add Urine Microscopic? YES; Specific Grav Ur 1.039 (1.001-1.035)
[2023-08-14] MEDS: diphenhydrAMINE HCl INJ 50 MG/ML VIAL 25 MG IV PUSH (18:40)
[2023-08-14] MEDS: SODIUM CHLORIDE 0.9% IV 1,000 ML 999 ML IV CONT ×2 (18:40→19:25)
[2023-08-14] MEDS: METOCLOPRAMIDE HCL INJ 10 MG/2 ML VIAL IV PUSH (18:40)
--- NOTE | 2023-08-14 19:14 | ED.NAVMDI ---
HPI - Nausea/Vomiting/Diarrhea General Chief complaint: Nausea/Vomiting/Diarrhea Stated complaint: abdominal pain/n/v Time Seen by Provider: 08/14/23 18:15 Source: patient Mode of arrival: ambulatory Limitations: no limitations History of Present Illness HPI Narrative: This is a 23-year-old male that presents to the emergency department for nausea, vomiting and abdominal discomfort. Reports this has been ongoing over the last 3 days. Reports chronic abdominal problems for which he sees a anesthesiologist physician. He has not been able to keep much down. He is also endorsing some low back pain. No recent injuries or trauma. Denies fevers, dysuria or hematuria. Related Data Allergies Allergy/AdvReac Type Severity Reaction Status Date / Time No Known Allergies Allergy Verified 07/10/23 20:36 Review of Systems Review of Systems: CONSTITUTIONAL: Denies fever GASTROINTESTINAL: Reports abdominal pain, nausea, vomiting. Denies diarrhea. GENITOURINARY: Denies dysuria or hematuria. MUSCULOSKELETAL: Reports back pain, joint pain, and myalgia. All systems reviewed & are unremarkable except as noted in HPI and below PMFSH Past Medical History Medical History Gastroesophageal reflux disease Social History Social History Social History: Daily marijuana Smoking status: Current some day smoker Alcohol intake: current Substance use: current Substance use type: marijuana Exam Narrative: GENERAL: Well-appearing, well-nourished, and in no acute distress. HEAD: Normocephalic, atraumatic. EYES: EOMI. ENT: Nares clear, no rhinorrhea or epistaxis. Mucous membranes moist. CHEST: Clear to auscultation. No respiratory distress. No wheezes rales or rhonchi HEART: Regular rate and rhythm. No murmur heard. Normal peripheral pulses. ABDOMEN: Soft, nondistended, normal active bowel sounds. Mild tenderness to palpation in the mid abdomen, without guarding BACK: No midline spinal tenderness EXTREMITIES: Normal range of motion. No edema. SKIN: Warm, dry, no rash. NEURO: No focal deficits. Alert and oriented x3. PSYCH: Normal mood and affect Course Course Emergency Course: Patient and family updated on workup and agree with plan of care Vital Signs Vital signs: Vital Signs Temperature 97.8 F 01/11/24 13:31 Pulse Rate 96 08/14/23 13:31 Respiratory Rate 16 08/14/23 13:31 Blood Pressure 111/58 L 08/14/23 13:31 Pulse Oximetry 100 08/14/23 13:31 Oxygen Delivery Room Air 08/14/23 13:31 Temperature 97.8 F 08/14/23 19:20 Pulse Rate 97 08/14/23 20:49 Respiratory Rate 16 08/14/23 20:49 Blood Pressure 110/72 08/14/23 20:49 Pulse Oximetry 99 08/14/23 20:49 Oxygen Delivery Room Air 08/14/23 13:31 MDM - Nausea/Vomiting/Diarrhea MDM Narrative Medical decision making narrative: Patient presents to the emergency department for abdominal pain, nausea and vomiting. Patient has history of this chronically. Seen for same multiple times in our ER. He is afebrile and nontoxic appearing. His vitals are stable. CBC without leukocytosis. Shows microcytic anemia hemoglobin of 12 which is stable. Metabolic panel and lipase without concerning findings. UA without evidence of infection. Does show some dehydration. Patient refused further evaluation with CT scan of his abdomen. He was hydrated with 2 L of IV fluids and given antiemetics with improvement. Able to tolerate p.o. challenge. He is to follow-up with gastroenterology. He was given warnings to return to the ER Differential Diagnosis Differential diagnosis: Likely food poisoning, gastroenteritis, dehydration and other (cyclic vomiting, gastritis, GERD) Lab Data Attestation: I reviewed the patient's lab results. 08/14/23 13:41 08/14/23 13:41 Labs: Lab Results 08/14/23 08/14/23 Range/Units 13:41 1
[2023-08-14 19:20] VITALS: BP 119/73; PULSE 88; RESP 19; TEMP 36.6; O2SAT 99
[2023-08-14] MEDS: KETOROLAC 15 MG/ML VIAL (*BKC) IV PUSH (19:27)
--- NOTE | 2023-08-14 19:52 | PC.NURSE ---
Per research instrumentation technician patient is refusing CT scan. When asked the patient states his pain is too much and when he spoke to his doctor they are wanting to get him into an MRI. EDP DIXIE Fairchild notified.
[2023-08-14] MEDS: PANTOPRAZOLE SODIUM IV 40 MG VIAL IV PUSH (20:10)
--- NOTE | 2023-08-14 20:13 | PC.NURSE ---
Patient states he is starting to feel nauseous and started to vomit again. Notified EDP DIXIE Brown who VRBO 4mg Zofran IVP.
[2023-08-14] MEDS: ONDANSETRON INJ 4 MG/2 ML VIAL IV PUSH (20:17)
[2023-08-14] MEDS: BELLADONNA ALK/PHENOB ELIX 10 ML, MAG HYDROX/ALUMINUM HYD/SIMETH 30 ML, LIDOCAINE HCL 2... PO (20:22)
[2023-08-14 20:49] VITALS: BP 110/72; PULSE 97; RESP 16; O2SAT 99
--- NOTE | 2023-08-14 20:53 | PC.NURSE ---
Patient requested some food. Notified EDP DIXIE Brown who advised if patient can hold food/drink down he can be d/c.
== END 2023-08-14 21:44 | disposition home or self-care (01) ==
PROVIDERS: Emergency Medicine; Emergency Provider Physician Assistant; PCP Family Medicine
DX: R11.2 Nausea with vomiting, unspecified (principal); K21.9 Gastro-esophageal reflux disease without esophagitis; F17.200 Nicotine dependence, unspecified, uncomplicated
CPT/HCPCS: 36415; 80053; 81001; 83690; 85025; 96361; 96374; 96375; 99284; A9270; C9113; J1200; J1885; J2405; J2765; J7030

== ENCOUNTER 2023-08-16 11:26 | Emergency (ER) | payer OTHER, SELFPAY ==
[2023-08-16 11:26] VITALS: BP 109/74; PULSE 83; RESP 20; TEMP 37.2; O2SAT 100
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
[2023-08-16 11:48] LABS: Basophils Percent Auto 0.1 % (0.2-1.2); Eosinophils Absolute Auto 0.1 K/mm3 (0-0.3); Eosinophils Percent Auto 0.9 % (0-4.4); Hematocrit 33.6 % (42.0-52.0); Hemoglobin 10.5 g/dL (14.0-18.0); Immature Granulocyte Absolute 0.02 K/mm3 (0.00-0.031); Immature Granulocyte Percent A 0.3 % (0-0.5); Lymphocytes Absolute Auto 1.11 K/mm3 (0.9-3.2); Lymphocytes Percent Auto 16.3 % (18.3-44.2); Mean Corpuscular HGB Conc 31.3 g/dl (32-36); Mean Corpuscular Hemoglobin 24.6 pg (26-34); Mean Corpuscular Volume 78.9 fl (80-100); Mean Platelet Volume 9.6 fl (7.4-10.4); Monocytes Absolute Auto 0.4 K/mm3 (0.1-0.6); Monocytes Percent Auto 6.5 % (2.6-8.5); Neutrophils Absolute Auto 5.2 K/mm3 (1.3-6.7); Neutrophils Percent Auto 75.9 % (45.5-73.1); Platelet Count Result 284 k/mm3 (150-375); Red Blood Count 4.26 M/mm3 (4.6-6.20); Red Cell Distribution Width 12.8 % (11.5-14.5); White Blood Count 6.8 K/mm3 (4.5-10.0)
[2023-08-16] MEDS: KETOROLAC 15 MG/ML VIAL (*BKC) IV PUSH (12:04)
[2023-08-16] MEDS: HALOPERIDOL LACTATE 5 MG/ML VIAL IM (12:04)
[2023-08-16 12:28] LABS: Add Urine Microscopic? YES; Appearance Urine Turbid (Clear); Bacteria Urine None Seen /hpf; Bilirubin Urine Negative (Negative); Blood Urine Negative (Negative); Color Urine Dark Yellow (Yellow); Glucose Urine UA Negative (Negative); Ketones Urine 1+ mg/dL (Negative); Leukocyte Esterase Ur Trace LEU/UL (Negative); Mucus Urine Present /lpf; Need Manual Microscopic Reviewed; Nitrate Urine Negative (Negative); Non Pathogenic Casts 0-2; Protein Urine 1+ mg/dL (Negative); RBC Urine 0-2 /hpf (0-2); Specific Grav Ur 1.029 (1.001-1.035); Squamous Epithelial Cell Urine None seen /hpf (Few); WBC Urine 0-5 /hpf
[2023-08-16 12:52] LABS: Alanine Aminotransferase 34 U/L (6-50); Albumin Level 4.3 g/dL (3.5-5.1); Alkaline Phosphatase 96 U/L (38-126); Anion Gap 8 mmol/L (8-16); Aspartate Amino Transferase 31 U/L (17-59); Bilirubin,Total 0.8 mg/dL (0.2-1.3); Blood Urea Nitrogen 10 mg/dL (9-20); Calcium 9.1 mg/dL (8.4-10.2); Carbon Dioxide 26 mmol/L (22-30); Chloride 103 mmol/L (98-107); Estimated CRCL calculation 119 ml/min; Estimated Glomerular Filt Rate > 60; Glucose 97 mg/dL (65-110); Lipase 93 U/L (23-300); Potassium 3.5 mmol/L (3.4-5.0); Sodium 137 mmol/L (137-145)
[2023-08-16 13:13] VITALS: BP 112/75; PULSE 73; RESP 17; O2SAT 100
== END 2023-08-16 13:14 | disposition home or self-care (01) ==
PROVIDERS: Emergency Provider Emergency Medicine; PCP Family Medicine
DX: R11.2 Nausea with vomiting, unspecified (principal); K21.9 Gastro-esophageal reflux disease without esophagitis; F17.200 Nicotine dependence, unspecified, uncomplicated
CPT/HCPCS: 36415; 80053; 81001; 83690; 85025; 96372; 96374; 99284; J1630; J1885

== ENCOUNTER 2023-09-30 10:04 | Emergency (ER) | payer OTHER, SELFPAY ==
[2023-09-30 10:22] VITALS: BP 109/49; PULSE 87; RESP 16; TEMP 37.1; O2SAT 99
[2023-09-30 11:42] LABS: Basophils Percent Auto 0.3 % (0.2-1.2); Eosinophils Percent Auto 0.3 % (0-4.4); Hematocrit 37.7 % (42.0-52.0); Hemoglobin 11.7 g/dL (14.0-18.0); Immature Granulocyte Absolute 0.02 K/mm3 (0.00-0.031); Immature Granulocyte Percent A 0.3 % (0-0.5); Lymphocytes Absolute Auto 1.03 K/mm3 (0.9-3.2); Lymphocytes Percent Auto 13.2 % (18.3-44.2); Mean Corpuscular Hemoglobin 24.8 pg (26-34); Mean Platelet Volume 8.9 fl (7.4-10.4); Monocytes Absolute Auto 0.4 K/mm3 (0.1-0.6); Monocytes Percent Auto 5.5 % (2.6-8.5); Neutrophils Absolute Auto 6.3 K/mm3 (1.3-6.7); Neutrophils Percent Auto 80.4 % (45.5-73.1); Platelet Count Result 265 k/mm3 (150-375); Red Blood Count 4.71 M/mm3 (4.6-6.20); White Blood Count 7.8 K/mm3 (4.5-10.0)
[2023-09-30] MEDS: SODIUM CHLORIDE 0.9% IV 1,000 ML 999 ML IV CONT (11:43)
[2023-09-30 11:54] LABS: Appearance Urine Cloudy (Clear); Bacteria Urine None Seen /hpf; Bilirubin Urine Negative (Negative); Blood Urine Negative (Negative); Color Urine Dark Yellow (Yellow); Glucose Urine UA Negative (Negative); Ketones Urine Trace mg/dL (Negative); Leukocyte Esterase Ur 1+ LEU/UL (Negative); Need Manual Microscopic Reviewed; Nitrate Urine Negative (Negative); Non Pathogenic Casts 0-2; Protein Urine 1+ mg/dL (Negative); Specific Grav Ur 1.034 (1.001-1.035); Squamous Epithelial Cell Urine Occasional /hpf (Few); WBC Urine 0-5 /hpf; pH Urine 8.5 (5.0-9.0)
[2023-09-30 11:55] LABS: Add Urine Microscopic? YES; Alanine Aminotransferase 27 U/L (6-50); Albumin Level 4.6 g/dL (3.5-5.1); Alkaline Phosphatase 86 U/L (38-126); Anion Gap 4 mmol/L (8-16); Aspartate Amino Transferase 27 U/L (17-59); Bilirubin,Total 0.8 mg/dL (0.2-1.3); Blood Urea Nitrogen 9 mg/dL (9-20); Calcium 9.5 mg/dL (8.4-10.2); Carbon Dioxide 32 mmol/L (22-30); Chloride 102 mmol/L (98-107); Estimated CRCL calculation 122 ml/min; Estimated Glomerular Filt Rate > 60; Glucose 100 mg/dL (65-110); Lipase 56 U/L (23-300); Potassium 3.6 mmol/L (3.4-5.0); Sodium 138 mmol/L (137-145)
--- NOTE | 2023-09-30 12:22 | ED.ABDPAIN ---
HPI - Abdominal Pain General Chief Complaint: Abdominal Pain Stated Complaint: abdominal pain Time Seen by Provider: 09/30/23 11:06 Source: patient Mode of arrival: EMS Limitations: no limitations History of Present Illness HPI narrative: Patient is a 23-year-old male who presents the ED via EMS with report of abdominal pain. Patient reports having pain for the last 3 days, states pain became worse today which prompted him to contact EMS. He also reported having intermittent nausea and vomiting over the last couple of days. He was given Zofran in route by EMS and is feeling much better. Denies any further nausea or abdominal pain currently. He states he feels hungry at this time. He does have history of cyclic vomiting syndrome and states these symptoms felt similar to previous episodes. He is a marijuana user but denies recent use. Denies diarrhea, constipation, fevers, urinary complaints. Related Data Allergies Allergy/AdvReac Type Severity Reaction Status Date / Time No Known Allergies Allergy Verified 09/30/23 10:04 Review of Systems Review of Systems: CONSTITUTIONAL: Denies fever, chills, or sweats. CARDIOVASCULAR: Denies chest pain. RESPIRATORY: Denies dyspnea. GASTROINTESTINAL: See HPI. GENITOURINARY: Denies dysuria or hematuria. MUSCULOSKELETAL: Denies back pain, extremity pain, myalgia. All systems reviewed & are unremarkable except as noted in HPI and below PMFSH Past Medical History Medical History Gastroesophageal reflux disease Social History Social History Social History: Daily marijuana Smoking status: Current some day smoker Alcohol intake: current Substance use: current Substance use type: marijuana Exam Narrative: GENERAL: Well appearing, well-nourished, non-toxic, in no acute distress. HEAD: Normocephalic, atraumatic. RESPIRATORY: Airway patent, respirations nonlabored. Clear to auscultation bilaterally, no rales, rhonchi, wheezing. CARDIOVASCULAR: Regular rate and rhythm without murmurs, rubs, or gallops. ABDOMINAL: Soft, no tenderness throughout abdomen, no evidence of surgical abdomen, nondistended. Normoactive BS. MUSCULOSKELETAL: Moves all extremities. No gross deformities. SKIN: Warm, dry, normal color. NEURO: A&O X3. Speech clear. PSYCHIATRIC: Appropriate mood and affect. Normal interaction. Course Vital Signs Vital signs: Vital Signs Temperature 98.8 F 09/30/23 10:22 Pulse Rate 87 09/30/23 10:22 Respiratory Rate 16 09/30/23 10:22 Blood Pressure 109/49 L 09/30/23 10:22 Pulse Oximetry 99 09/30/23 10:22 Oxygen Delivery Room Air 09/30/23 10:22 Temperature 98.5 F 09/30/23 12:42 Pulse Rate 82 09/30/23 12:42 Respiratory Rate 18 09/30/23 12:42 Blood Pressure 118/72 09/30/23 12:42 Pulse Oximetry 100 09/30/23 12:42 Oxygen Delivery Room Air 09/30/23 10:22 MDM - Abdominal Pain MDM Narrative Medical decision making narrative: Patient presented to ED with 3 day history of diffuse abdominal pain, associated with nausea and vomiting. Patient with history of cyclical vomiting, seen in our ED previously for similar symptoms. Vital signs are stable upon arrival. Patient was given Zofran by EMS EN route to the ED and is completely asymptomatic by the time of my evaluation. Denies any further abdominal pain or nausea. Reports he is hungry, wanting something to eat. Wanting IV fluids. Laboratory studies were evaluated and unremarkable. No leukocytosis. No significant electrolyte derangement. Stable kidney function. Urinalysis with trace ketones, no evidence for infection. Patient was given 1 L fluids in the ED, continues to feel improved. He does not have any abdominal tenderness on repeat examinations, no evidence of surgical abdomen to suggest need for further labs or imaging at this time. Patient able
[2023-09-30 12:42] VITALS: BP 118/72; PULSE 82; RESP 18; TEMP 36.9; O2SAT 100
== END 2023-09-30 12:40 | disposition home or self-care (01) ==
PROVIDERS: Emergency Provider Physician Assistant; PCP Family Medicine
DX: R10.9 Unspecified abdominal pain (principal); G89.29 Other chronic pain; R11.2 Nausea with vomiting, unspecified; K21.9 Gastro-esophageal reflux disease without esophagitis; F17.200 Nicotine dependence, unspecified, uncomplicated
CPT/HCPCS: 36415; 80053; 81001; 83690; 85025; 96360; 99283; J7030

== ENCOUNTER 2025-01-17 09:07 | Emergency (ER) | payer OTHER, SELFPAY ==
[2025-01-17 09:06] VITALS: BP 108/67; PULSE 62; RESP 18; TEMP 37.1; O2SAT 100
--- NOTE | 2025-01-17 09:17 | ED.ABDPAIN ---
HPI - Abdominal Pain General Chief Complaint: Abdominal Pain Stated Complaint: abd pain, n/v Time Seen by Provider: 01/17/25 09:07 Source: patient Mode of arrival: EMS Limitations: no limitations History of Present Illness HPI narrative: Patient is a 24-year-old male, past medical history of cannabinoid hyperemesis syndrome, presents the ED via EMS with report of nausea/vomiting. Reports NBNB N/V for the past 3 days. Associated with epigastric abdominal pain. Has not taken anything for symptoms. Denies diarrhea, rectal bleeding, melena, fevers. Reports daily marijuana use. Last smoked marijuana last night. States his last episode of nausea and vomiting was 1 month ago. Related Data Allergies Allergy/AdvReac Type Severity Reaction Status Date / Time No Known Allergies Allergy Verified 01/17/25 09:09 Review of Systems Review of Systems: All systems reviewed & are unremarkable except as noted in HPI. All systems reviewed & are unremarkable except as noted in HPI and below PMFSH Past Medical History Medical History Gastroesophageal reflux disease Social History Social History Social History: Daily marijuana Smoking status: Current some day smoker Alcohol intake: current Substance use: current Substance use type: marijuana Exam Narrative: GENERAL: Uncomfortable appearing, well-nourished, non-toxic, difficulty sitting still on stretcher. HEAD: Normocephalic, atraumatic. RESPIRATORY: Airway patent, respirations nonlabored. Clear to auscultation bilaterally, no rales, rhonchi, wheezing. CARDIOVASCULAR: Regular rate and rhythm without murmurs, rubs, or gallops. ABDOMINAL: Soft, diffuse tenderness, no significant focal tenderness, nondistended. Normoactive BS. MUSCULOSKELETAL: Moves all extremities. No gross deformities. SKIN: Warm, dry, normal color. NEURO: A&O X3. Speech clear. Steady gait. No ataxic movements. PSYCHIATRIC: Appropriate mood and affect. Normal interaction. Course Vital Signs Vital signs: Vital Signs Temperature 98.7 F 01/17/25 09:06 Pulse Rate 62 01/17/25 09:06 Respiratory Rate 18 01/17/25 09:06 Blood Pressure 108/67 01/17/25 09:06 Pulse Oximetry 100 01/17/25 09:06 Oxygen Delivery Room Air 01/17/25 09:06 Temperature 98.7 F 01/17/25 09:06 Pulse Rate 62 01/17/25 09:06 Respiratory Rate 18 01/17/25 09:06 Blood Pressure 108/67 01/17/25 09:06 Pulse Oximetry 100 01/17/25 09:06 Oxygen Delivery Room Air 01/17/25 09:06 MDM - Abdominal Pain MDM Narrative Medical decision making narrative: Patient presented to ED with 3 day history of nausea, vomiting. History of cannabinoid induced hyperemesis. Still smoking marijuana. Reports associated epigastric pain. Vital signs are stable upon arrival. Fluids and nausea medication initiated as well as Pepcid. Laboratory studies without leukocytosis. H&H is stable, consistent with previous records. Normal platelets. CMP with potassium of 3.3. Will replace. Otherwise stable electrolytes. Stable kidney function. Normal magnesium. Nml LFTs and lipase. UA with 3+ ketones, no signs of infection. Patient given Pepcid, 2L fluids, Zofran. On re-evaluation, still reporting some epigastric pain but feeling improved. Will order Haldol and potassium replacement, p.o. challenge. I had a long discussion with patient about marijuana use and cyclic vomiting syndrome. Patient does not believe his marijuana use is related and resistant to any education on this. Patient feeling much better after Haldol. Requested to go home. States he is hungry. Tolerated p.o.. Will prescribe Bentyl and Zofran for home use. Given return precautions. Discharged in stable condition. Medical Records Attestation: I reviewed the patient's medical records. Lab Data Attestation: I reviewed the patient's lab results. 01/17/25 09:16 01/17/25 09:13 Labs: Lab Results 01/17/25 01/17/25 Range/Units 09:13 09:16 WBC 7.9 (4.5-10.0) K/mm3 RBC 4.59 L (4.6-6.20) M/mm3 Hgb 11.3 L (14.0-18.0) g/dL Hct 35.8 L (42.0-52.0) % MCV 78.0 L (80-100) fl MCH 24.6 L (26-34) pg MCHC 31.6 L (32-36) g/dl RDW 12.7 (11.5-14.5) % Plt Count 249 (150-375) k/mm3 MPV 9.2 (7.4-10.4) fl Immature Gran % (Auto) 0.5 (0-0.5) % Neut % (Auto) 77.6 H (45.5-73.1) % Lymph % (Auto) 16.7 L (18.3-44.2) % [place] % (Auto) 4.8 (2.6-8.5) % Eos % (Auto) 0.1 (0-4.4) % Baso % (Auto) 0.3 (0.2-1.2) % Lymph # (Auto) 1.32 (0.9-3.2) K/mm3 [place] # (Auto) 0.4 (0.1-0.6) K/mm3 Eos # (Auto) 0.0 (0-0.3) K/mm3 Baso # (Auto) 0.0 (0.0-0.1) K/mm3 Abs Immat Gran (auto) 0.04 H (0.00-0.031) K/mm3 Absolute Neuts (auto) 6.1 (1.3-6.7) K/mm3 Absolute Nucleated RBC 0.000 (0.0-0.012) K/mm3 Nucleated RBC % 0.0 (0.0-0.2) % Sodium 136 L (137-145) mmol/L Potassium 3.3 L (3.4-5.0) mmol/L Chloride 102 (98-107) mmol/L Carbon Dioxide 23 (22-30) mmol/L Anion Gap 11 (4-12) mmol/L BUN 12 (9-20) mg/dL Creatinine 0.96 (0.7-1.3) mg/dL Estim Creat Clear Calc 121 ml/min Estimated GFR > 60 (59 - ) Glucose 112 H (65-110) mg/dL Calcium 9.7 (8.4-10.2) mg/dL Magnesium 1.9 (1.6-2.3) mg/dL Total Bilirubin 0.8 (0.2-1.3) mg/dL AST 26 (17-59) U/L ALT 23 (6-50) U/L Alkaline Phosphatase 87 (38-126) U/L Total Protein 7.8 (6.3-8.2) g/dL Albumin 4.8 (3.5-5.1) g/dL Lipase 69 (23-300) U/L Urine Color Dark yellow (Yellow) Urine Appearance Cloudy H (Clear) Urine pH 7.0 (5.0-9.0) Ur Specific [place] 1.030 (1.001-1.035) Urine Protein 1+ H (Negative) mg/dL Urine Glucose (UA) Negative (Negative) mg/dL Urine Ketones 3+ H (Negative) mg/dL Ur Blood (Man) Negative (Negative) Urine Nitrate Negative (Negative) Urine Bilirubin Negative (Negative) Urine Urobilinogen 2.0 H (<2.0) mg/dL Add Ur Microanalysis Reviewed Leukocyte Esterase Rfl 1+ H (Negative) MEENAKSHI/UL Urine RBC 0-2 (0-2) /hpf Urine WBC 0-5 (0-3) /hpf Ur Squamous Epith Cells None seen (Few) /hpf Urine Bacteria None seen /hpf Urine Casts 3-5 Urine Mucus Present /lpf Discharge Plan Discharge Clinical Impression: Cannabinoid hyperemesis syndrome Patient Disposition: Home Condition: Stable Instructions: Antibiotic Form, Cyclic Vomiting Syndrome (ED) Additional Instructions: Avoid further marijuana use as this is contributing to your nausea/vomiting. Utilize zofran as needed for further nausea. You may use Tylenol, Bentyl as needed for abdominal discomfort. Increase fluid intake. Recommend electrolyte rich fluids, gatorade, pedialyte, body armour. Recommend clear liquids or bland diet until symptoms improve, such as bananas, rice, applesauce, toast, or crackers. Follow up with your primary care doctor and/or GI for further evaluation. Return to the ED if you experience worsening or severe symptoms, unable to keep down food or drink, severe pain, fevers, rectal bleeding, vomiting blood, or any other symptoms of concern. Patient Language: Malian Prescriptions: New dicyclomine 20 mg tablet 20 mg PO TID PRN (Reason: Abdominal Discomfort) Qty: 15 0RF ondansetron 4 mg tablet,disintegrating 4 mg PO Q8H PRN (Reason: nausea and vomiting) Qty: 15 0RF Follow-up/Referrals: Myron Barahona MD [Physician] - (RITIKA) Nikos,Mane Alston MD [Primary Care Provider] - Time of Disposition: 11:28
[2025-01-17 09:24] LABS: Basophils Percent Auto 0.3 % (0.2-1.2); Eosinophils Percent Auto 0.1 % (0-4.4); Hematocrit 35.8 % (42.0-52.0); Hemoglobin 11.3 g/dL (14.0-18.0); Immature Granulocyte Absolute 0.04 K/mm3 (0.00-0.031); Immature Granulocyte Percent A 0.5 % (0-0.5); Lymphocytes Absolute Auto 1.32 K/mm3 (0.9-3.2); Lymphocytes Percent Auto 16.7 % (18.3-44.2); Mean Corpuscular HGB Conc 31.6 g/dl (32-36); Mean Corpuscular Hemoglobin 24.6 pg (26-34); Mean Platelet Volume 9.2 fl (7.4-10.4); Monocytes Absolute Auto 0.4 K/mm3 (0.1-0.6); Monocytes Percent Auto 4.8 % (2.6-8.5); Neutrophils Absolute Auto 6.1 K/mm3 (1.3-6.7); Neutrophils Percent Auto 77.6 % (45.5-73.1); Platelet Count Result 249 k/mm3 (150-375); Red Blood Count 4.59 M/mm3 (4.6-6.20); Red Cell Distribution Width 12.7 % (11.5-14.5); White Blood Count 7.9 K/mm3 (4.5-10.0)
[2025-01-17] MEDS: SODIUM CHLORIDE 0.9% IV 1,000 ML 999 ML IV CONT ×2 (09:26→10:00)
[2025-01-17] MEDS: ONDANSETRON INJ 4 MG/2 ML VIAL IV PUSH (09:26)
[2025-01-17] MEDS: FAMOTIDINE 20 MG/2 ML VIAL IV PUSH (09:26)
[2025-01-17 09:32] LABS: Alanine Aminotransferase 23 U/L (6-50); Albumin Level 4.8 g/dL (3.5-5.1); Alkaline Phosphatase 87 U/L (38-126); Anion Gap 11 mmol/L (4-12); Aspartate Amino Transferase 26 U/L (17-59); Bilirubin,Total 0.8 mg/dL (0.2-1.3); Blood Urea Nitrogen 12 mg/dL (9-20); Calcium 9.7 mg/dL (8.4-10.2); Carbon Dioxide 23 mmol/L (22-30); Chloride 102 mmol/L (98-107); Estimated CRCL calculation 121 ml/min; Estimated Glomerular Filt Rate > 60; Glucose 112 mg/dL (65-110); Lipase 69 U/L (23-300); Potassium 3.3 mmol/L (3.4-5.0); Sodium 136 mmol/L (137-145); Total Protein 7.8 g/dL (6.3-8.2)
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
--- OUTSIDE RECORDS SUMMARY | 2025-01-17 09:37 | XMS_ITS | Clinical Summary ---
Author Organization [facility] Address [address] [place] [address] Care Team Providers Care Hollow Tile Partition Erector Name Role Phone Mane Knott MD Primary Care Provider [phone] Allergies Active Allergy Reactions Criticality Noted Date [...] 2017 Spinal asymmetry (< 10 degrees) 03/20/2015 Encounters Date Type Department Care Team Description 12/17/2024 3:24 PM CDT - 12/17/2024 4:34 PM CDT Emergency [facility] Emergency Department [address] [place] [id number] Nausea and vomiting, unspecified vomiting type (Primary Dx) Discharge Disposition: Discharge to home or self care from Last 3 Months Immunizations Immunization Administration Dates Next Due Influenza, Unspecified 04/04/2023(Deferr ed: Patient decision),04/04/2022(Deferred: Patient decision),04/04/2022(Deferred: Patient decision) Tdap 07/06/2020 Surgical History Surgery Date Site/Laterality Comments MANDIBLE FRACTURE SURGERY COLONOSCOPY UPPER GASTROINTESTINAL ENDOSCOPY ARTHROSCOPIC REPAIR ACL 08/04/2017 - 08/03/2018 Right Medical History Medical History Date Comments Gastritis Acid reflux H. 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 Gender Identity Male 01/04/2022 1:12 PM CDT Sexual Orientation Not on file Obstetrics History Last Filed Vital Signs Vital Sign Reading [...] 12/17/2024 1:57 PM CDT Plan of Treatment Health Maintenance Due Date Last Done Comments Hepatitis C Screening 2000 HPV Vaccines (1 - Male 3-dose series) 2015 Hepatitis B Screening 2018 Regular Well Visit/Exam 18-64 10/08/2023 10/07/2022 Depression Screening 05/19/2024 05/19/2023, 05/19/2023, 10/07/2022, Additional history exists Influenza Vaccine (Season Ended) 2025 DTaP/Tdap/Td Vaccine (2 - Td or Tdap) 07/06/2030 07/06/2020 Pneumococcal vaccine <65 Aged Out No longer eligible based on patient's age to complete this topic Varicella Vaccines Discontinued Procedures Procedure Name Priority Date/Time Associated Diagnosis [...] ur Kalie Yellow Comment:Testing performed by : [address] [address] Clarity, ur Turbid(A) Clear MANDEEP Comment:Testing performed by : [address] [address] Specific gravity, ur 1.023 1.003 - 1.030 MANDEEP Comment:Testing performed by : [address] [address] pH, urine 8.5 MANDEEP Comment: Interpretive Data U rine pH is affected by diet, medications, systemic acid-base disturbances, and renal tubular function. pH may affect urinary stone formation. For example, urine pH below 6.0 may help reduce the tendency for calcium phosphate stones and pH greater than 6.0 may reduce the tendency for uric acid stone formation. Source: [facility] [employer] Current Interpretive Data was last revised on 2017 Testing performed by: [address] [address] Protein, ur ql 1+(A) Negative MANDEEP Comment:Testing performed by : [address] [address] Glucose, ur ql Negative Negative MANDEEP Comment:Testing performed by : [address] [address] Ketones, ur Negative Negative MANDEEP Comment:Testing performed by : [address] [address] Bilirubin, ur Negative Negative MANDEEP Comment:Testing performed by : [address] [address] Blood, ur Negative Negative MANDEEP Comment:Testing performed by : [address] [address] Urobilinogen, ur <2.0 <2.0 mg/dL MANDEEP [place] GUZMAN Comment:Testing performed by : [address] [address] Nitrite, ur Negative Negative MANDEEP DE GUZMAN Comment:Testing performed by : [address], [place]., [address] Leukocyte esterase, ur Negative Negative MANDEEP Comment:Testing performed by : [address], [place]., [address] UA reflex comment Reflex to microscopic UA will be performed. MANDEEP Comment:Testing performed by : [address] [address] Urine 12/17/2024 3:48 PM CDT 12/17/2024 3:58 PM CDT us Davie Amaral MD LAB MICROBIOLOGY - GEN ERAL ORDERABLES Final Result MANDEEP [address] [facility] Department [place] [address] * (ABNORMAL) Urinalysis, microscopic only (12/17/2024 3:48 PM CDT) WBC, ur 0-5 0 - 5 /HPF Comment:Testing performed by : [address] [address] RBC, ur 6-10(A) 0 - 2 /HPF MANDEEP Comment:Testing performed by : [address] [address] Mucous, ur Present(A) MANDEEP Comment:Testing performed by : [address] [address] Culture Reflex Comment Reflex conditions for urine culture (WBC >10) not met. MANDEEP DE GUZMAN Comment:Testing performed by : [address], [place]., [address] Urine 12/17/2024 3:48 PM CDT 12/17/2024 3:58 PM CDT Davie Amaral MD LAB URINE ORDERABLES F inal Result Performing Organization Address [facility] de Phone Number MANDEEP [facility] [place] [address] * eGFR (12/17/2024 2:01 PM CDT) eGFR [...] was last reviewed 2021. Testing performed by: [address] [address] Blood 12/17/2024 2:01 PM CDT 12/17/2024 2:28 PM CDT us Davie Amaral MD LAB BLOOD ORDERABLES F inal Result Performing Organization Address [facility] Co de Phone Number MANDEEP [address] [facility] [employer] [place], [place] [id number] * (ABNORMAL) Differential, auto (12/17/2024 2:01 PM CDT) Neutrophil abs 8.79(H) 1.50 - 6.50 K/cumm Comment:Testing performed by : [address] [address] Imm gran abs 0.03 0.00 - 0.10 K/cumm [facility] Comment:Testing performed by : [address] [address] Lymphocyte abs 0.77(L) 0.80 - 3.30 K/cumm [facility] Comment:Testing performed by : [address] [address] Monocyte abs 0.31 0.20 - 0.80 K/cumm [facility] Comment:Testing performed by : [address], [place]., [address] Eosinophil abs 0.01 0.00 - 0.50 K/cumm [facility] Comment:Testing performed by : [address] [address] Basophil abs 0.03 0.00 - 0.10 K/cumm [facility] Comment:Testing performed by : [address] [address] Neutrophil pct 88.5 % [facility] Comment: Interpretive Data Percent cell count reference ranges are not reported, since discordance with absolute values may lead to misinterpretation of CBC data. Current Interpretive Data was last revised on 2017. Testing performed by: [address] [address] Imm gran pct 0.3 % [facility] Comment: Interpretive Data Percent cell count reference ranges are not reported, since discordance with absolute values may lead to misinterpretation of CBC data. Current Interpretive Data was last revised on 2017. Testing performed by: [address] [address] Lymphocyte pct 7.7 % [facility] Comment: Interpretive Data Percent cell count reference ranges are not reported, since discordance with absolute values may lead to misinterpretation of CBC data. Current Interpretive Data was last revised on 2017. Testing performed by: [address] [address] Monocyte pct 3.1 % [facility] Comment: Interpretive Data Percent cell count reference ranges are not reported, since discordance with absolute values may lead to misinterpretation of CBC data. Current Interpretive Data was last revised on 2017. Testing performed by: [address] [address] Eosinophil pct 0.1 % MANDEEP Comment: Interpretive Data Percent cell count reference ranges are not reported, since discordance with absolute values may lead to misinterpretation of CBC data. Current Interpretive Data was last revised on 2017. Testing performed by: [address] [address] Basophil pct 0.3 % MANDEEP Comment: Interpretive Data Percent cell count reference ranges are not reported, since discordance with absolute values may lead to misinterpretation of CBC data. Current Interpretive Data was last revised on 2017. Testing performed by: [address] [address] Blood 12/17/2024 2:01 PM CDT 12/17/2024 2:28 PM CDT us Davie Amaral MD LAB BLOOD ORDERABLES F inal Result [place] [address] [facility] Department [place] [address] * (ABNORMAL) CBC with auto differential (12/17/2024 2:01 PM CDT) Pathologist [facility] WBC 9.94(H) 3.80 - 9.90 K/cumm Comment:Testing performed by : [address] [address] Hgb 11.9(L) 13.0 - 17.5 g/dL MANDEEP Comment:Testing performed by : [address] [address] Hct 37.4(L) 38.9 - 50.3 % MANEDEP Comment:Testing performed by : [address] [address] Plt 284 150 - 400 K/cumm [facility]DEEP [place] [facility] Comment:Testing performed by : [address] [address] MPV 9.9 9.1 - 12.3 fL MANDEEP [place] [facility] Comment:Testing performed by : [address] [address] RBC 4.82 4.30 - 5.80 M/cumm [facility] Comment:Testing performed by : [address] [address] MCV 77.6(L) 81.3 - 96.4 fL [facility]EP [place] [facility] Comment:Testing performed by : [address] [address] MCH 24.7(L) 27.1 - 33.3 pg MANDEEP Comment:Testing performed by : [address] [address] MCHC 31.8(L) 32.3 - 35.7 g/dL MANDEEP [place] Comment:Testing performed by : [address] [address] RDW CV 12.8 11.1 - 14.9 % MANDEEP Comment:Testing performed by : [address], [address] RDW SD 36.1 35.7 - 48.1 fL MANDEEP Comment:Testing performed by : [address] [address] NRBC abs 0.00 0.00 - 0.01 K/cumm MANDEEP Comment:Testing performed by : [address] [address] Blood Venous blood specimen / Unknown 12/17/2024 2:01 PM CDT 12/17/2024 2:28 PM CDT us Davie Amaral MD LAB BLOOD ORDERABLES F inal Result MANDEEP [facility] Department [place] [address] * Lipase (12/17/2024 2:01 PM CDT) Lipase 26 10 - 99 Units/L Comment:Testing performed by : [address], [address] Blood Venous blood specimen / Unknown 12/17/2024 2:01 PM CDT 12/17/2024 2:28 PM CDT us Davie Amaral MD LAB BLOOD ORDERABLES F inal Result [place] [address] [facility] Department [place] [address] * Comprehensive metabolic panel (12/17/2024 2:01 PM CDT) Sodium 137 135 - 145 mmol/L Comment:Testing performed by : [address] [address] Potassium, pl 3.8 3.3 - 4.9 mmol/L MANDEEP Comment:Testing performed by : [address] [address] Chloride 100 97 - 110 mmol/L MANDEEP Comment:Testing performed by : [address] [address] CO2 25 22 - 32 mmol/L MANDEEP Comment:Testing performed by : [address] [address] Anion gap 12 2 - 15 mmol/L MANDEEP Comment:Testing performed by : [address] [address] BUN 11 6 - 25 mg/dL MANDEEP Comment:Testing performed by : [address] [address] Creatinine 0.80 0.80 - 1.30 mg/dL MANDEEP Comment:Testing performed by : [address] [address] Glucose 108 70 - 199 mg/dL MANDEEP Comment: Interpretive Data Fasting glucose >/= 126 [...] classification and Diagnosis of Diabetes Diabetes Care 202; 46: S19-S40. Current interpretive data was last revised 2022. Testing performed by: [address] [address] Calcium 9.6 8.5 - 10.3 mg/dL MANDEEP Comment:Testing performed by : [address] [address] Bilirubin, total 0.4 0.1 - 1.2 mg/dL MANDEEP Comment:Testing performed by : [address] [address] Protein, pl 8.1 6.5 - 8.5 g/dL MANDEEP Comment:Testing performed by : [address] [address] Albumin 4.9 3.5 - 5.0 g/dL MANDEEP Comment:Testing performed by : [address] [address] Alk phos 104 40 - 130 Units/L MANDEEP Comment:Testing performed by : [address] [address] ALT 16 7 - 55 Units/L MANDEEP Comment:Testing performed by : [address] [address] AST 20 10 - 50 Units/L MANDEEP Comment:Testing performed by : [address] [address] Blood 12/17/2024 2:01 PM CDT 12/17/2024 2:28 PM CDT us Davie Amaral MD LAB BLOOD ORDERABLES F inal Result MANDEEP [address] [facility] Department [place] [address] from Last 3 Months Insurance [facility] Care Teams Hollow Tile Partition Erector Relationship Specialty Start Date End Date Mane Knott MD [address] [place] [address] PCP - General Family Medicine 12/17/24
--- OUTSIDE RECORDS SUMMARY | 2025-01-17 09:37 | XMS_ITS | Clinical Summary ---
Author Organization Address [address] [place] [address] Care Team Providers Care School Treasurer Name Role Phone Unavailable Primary Care Provider Unavailabl e Social History Tobacco Use Types Packs/Day Years Used Date Smoking Tobacco: Never Assessed Sex and Gender Information Value Date Recorded Sex Assigned at Not on file Legal Sex Male 1:26 PM [employer] Gender Identity Not on file Sexual Orientation Not on file Plan of Treatment Health Maintenance Due Date Last Done Comments Hepatitis C Virus (HCV) Screening 2000 Human Papillomavirus (HPV) Immunization (2 - Male 2-dose series) 08/19/2014 02/16/2014 Influenza Immunization (#1) 04/04/202406/04, 04/24/2016, 06/21/2015, Additional history exists SARS-COV-2 Immunization (2023- season) 2024 Respiratory Syncytial Virus (RSV) Immunization (Adult) (1 - 1-dose 75+ series) 2075 Hepatitis B Immunization Completed 002, 2000, 2000 Pneumococcal Immunization Combined Aged Out 12/10/2002, 02/23/2001, 2000, Additional history exists No longer eligible based on patient's age to complete this topic DTaP/Tdap/Td Immunization Discontinued 2011, 03/27/2005, 12/10/2002, Additional history exists TdaP Immunization Completed 03/18/2012 Meningococcal Immunization (ACWY) Completed 10/15/2017, 03/18/2012 Rotavirus Immunization Aged Out No lo nger eligible based on patient's age to complete this topic
[2025-01-17 09:41] LABS: Magnesium 1.9 mg/dL (1.6-2.3)
[2025-01-17 09:49] LABS: Add Urine Microscopic? YES; Appearance Urine Cloudy (Clear); Bacteria Urine None Seen /hpf; Bilirubin Urine Negative (Negative); Blood Urine Negative (Negative); Color Urine Dark Yellow (Yellow); Glucose Urine UA Negative (Negative); Ketones Urine 3+ mg/dL (Negative); Leukocyte Esterase Ur 1+ LEU/UL (Negative); Mucus Urine Present /lpf; Need Manual Microscopic Reviewed; Nitrate Urine Negative (Negative); Protein Urine 1+ mg/dL (Negative); RBC Urine 0-2 /hpf (0-2); Squamous Epithelial Cell Urine None Seen /hpf (Few); WBC Urine 0-5 /hpf (0-3)
[2025-01-17] MEDS: POTASSIUM CHLORIDE 20 MEQ ER TABLET PO (10:53)
[2025-01-17] MEDS: HALOPERIDOL LACTATE 5 MG/ML VIAL IM (10:53)
[2025-01-17 11:34] VITALS: BP 121/73; PULSE 89; RESP 16; O2SAT 100
== END 2025-01-17 11:36 | disposition home or self-care (01) ==
PROVIDERS: Emergency Provider Physician Assistant; PCP Family Medicine
DX: R11.2 Nausea with vomiting, unspecified (principal); F12.90 Cannabis use, unspecified, uncomplicated; K21.9 Gastro-esophageal reflux disease without esophagitis; F17.200 Nicotine dependence, unspecified, uncomplicated
CPT/HCPCS: 36415; 80053; 81001; 83690; 83735; 85025; 87086; 96361; 96372; 96374; 96375; 99284; A9270; J1630; J2405; J7030